=== PATIENT | male | born 1945 | race Caucasian/White ===

== ENCOUNTER → 2018-04-05 08:30 | Outpatient (CLI) | payer MEDICARE, OTHER, SELFPAY ==
[2018-04-05 09:13] LABS: Add Manual Diff / Slide Review NO; Basophils Percent Auto 0.3 % (0-2); Eosinophils Percent Auto 1.9 % (2-4); Hematocrit 42.3 % (41-53); Hemoglobin 14.7 g/dL (13.5-17.5); Lymphocytes Percent Auto 28.5 % (25-40); Mean Corpuscular HGB Conc 34.6 % (30-36); Mean Corpuscular Hemoglobin 33.2 PG (26-34); Mean Corpuscular Volume 95.7 fL (80-100); Neutrophils Absolute Auto 4000 /uL (3000-5900); Neutrophils Percent Auto 59.3 % (50-75); Platelet Count 159 X10^3/uL (150-400); Red Blood Cell Count 4.42 X10^6/uL (4.5-5.9); Red Cell Distribution Width 13.6 % (11.6-14.8); White Blood Cell Count 6.7 X10^3/uL (4.5-11.0)
[2018-04-05 10:12] LABS: Alanine Aminotransferase 28 IU/L (21-72); Albumin 4.1 g/dL (3.5-5.0); Albumin Globulin Ratio 1.4 (1.0-2.8); Alkaline Phosphatase 64 U/L (38-126); Aspartate Aminotransferase 33 IU/L (17-59); Bilirubin Total 1.3 mg/dL (0.2-1.3); Blood Urea Nitrogen 17 mg/dL (9-20); Calcium 9.1 mg/dL (8.4-10.2); Carbon Dioxide 31 mmol/L (22-32); Chloride 102 mmol/L (98-107); Cholesterol 108 mg/dL (140-199); Estimated Glomerular Filt Rate > 60.0 mL/min (>60); Globulin 2.9 g/dL (1.7-4.1); Glucose 99 mg/dL (80-110); HDL Cholesterol 40 mg/dL (40-60); HEMOLYSIS < 15 (0-50); LDL Cholesterol Calculated 48 mg/dL (<100); Potassium 4.3 mmol/L (3.4-5.1); Sodium 141 mmol/L (137-145); Triglycerides 102 mg/dL (35-150)
[2018-04-05 11:01] LABS: Thyroid Stimulating Hormone 6.25 uIU/mL (0.47-4.68)
[2018-04-05 11:31] LABS: T4 Total Thyroxine 7.33 ug/dL (5.5-11.0)
== END ==
PROVIDERS: Family Provider Family Medicine; PCP Family Medicine; Visit Provider Family Medicine
DX: D64.9 Anemia, unspecified (principal); E03.9 Hypothyroidism, unspecified; E78.00 Pure hypercholesterolemia, unspecified; R03.0 Elevated blood-pressure reading, without diagnosis of hypertension
CPT/HCPCS: 36415; 80053; 80061; 84436; 84443; 85025

== ENCOUNTER → 2018-07-25 12:16 | Outpatient (CLI) | payer MEDICARE, OTHER, SELFPAY ==
[2018-07-25 13:41] LABS: Free T4, Direct Thyroxine 1.26 ng/dL (0.78-2.19)
[2018-07-25 13:55] LABS: Thyroid Stimulating Hormone 2.79 uIU/mL (0.47-4.68)
== END ==
PROVIDERS: PCP Student in an Organized Health Care Education/Training Program; Visit Provider Family Medicine
DX: E03.9 Hypothyroidism, unspecified (principal)
CPT/HCPCS: 36415; 84439; 84443

== ENCOUNTER → 2019-04-18 10:16 | Outpatient (CLI) | payer MEDICARE, OTHER, SELFPAY ==
[2019-04-18 10:51] LABS: Blood Urea Nitrogen 17 mg/dL (9-20); Calcium 9.6 mg/dL (8.4-10.2); Carbon Dioxide 30 mmol/L (22-32); Chloride 103 mmol/L (98-107); Estimated Glomerular Filt Rate > 60.0 mL/min (>60); Glucose 102 mg/dL (80-110); HEMOLYSIS < 15 (0-50); Potassium 4.4 mmol/L (3.4-5.1); Sodium 141 mmol/L (137-145)
[2019-04-18 11:10] LABS: Free T4, Direct Thyroxine 1.13 ng/dL (0.78-2.19); Vitamin D 25 Hydroxy (D3) 38.3 ng/mL (30.0-100.0)
[2019-04-18 11:24] LABS: Thyroid Stimulating Hormone 2.88 uIU/mL (0.47-4.68)
== END ==
PROVIDERS: PCP Student in an Organized Health Care Education/Training Program; Visit Provider Student in an Organized Health Care Education/Training Program
DX: E55.9 Vitamin D deficiency, unspecified (principal); I10 Essential (primary) hypertension; I25.10 Atherosclerotic heart disease of native coronary artery without angina pectoris; E03.9 Hypothyroidism, unspecified
CPT/HCPCS: 36415; 80048; 82306; 84439; 84443

== ENCOUNTER → 2019-07-29 09:50 | Outpatient (CLI) | payer MEDICARE, OTHER, SELFPAY ==
[2019-07-29 12:22] LABS: TSH w/ Reflex to FT4 1.59 uIU/mL (0.47-4.68)
== END ==
PROVIDERS: PCP Student in an Organized Health Care Education/Training Program; Visit Provider Student in an Organized Health Care Education/Training Program
DX: E03.9 Hypothyroidism, unspecified (principal)
CPT/HCPCS: 36415; 84443

== ENCOUNTER 2019-08-01 14:49 | Emergency (ER) | payer MEDICARE, OTHER, SELFPAY ==
[2019-08-01] VITALS (8 sets, daily range): BP systolic 124–165; BP diastolic 60–91; PULSE 46–74; RESP 12–21; TEMP 36.6; O2SAT 96–100; BMI 25.3
--- NOTE | 2019-08-01 14:59 | DI.RAD.S_ITS ---
PROCEDURE: XR CHEST 1V INDICATIONS: chest pain TECHNIQUE: One view of the chest was acquired. COMPARISON: [facility], , CHEST 2 VIEW, 01/18/2017, 14:47. FINDINGS: Surgical changes and devices: None. Lungs and pleura: Lungs are clear. No pleural effusions or pneumothorax. Mediastinum: Mediastinal contours appear normal. Heart size is normal. Bones and chest wall: No suspicious bony lesions. Overlying soft tissues appear unremarkable. IMPRESSION: No acute disease. Dictated by: Denver Hodgson M.D. on 08/01/2019 at 15:33 Approved by: Denver Hodgson M.D. on 08/01/2019 at 15:33
[2019-08-01 15:10] LABS: Add Manual Diff / Slide Review NO; Basophils Absolute Auto 0 /uL (0-100); Basophils Percent Auto 0.3 % (0-2); Eosinophils Absolute Auto 100 /uL (0-450); Eosinophils Percent Auto 1.7 % (2-4); Hematocrit 44.4 % (41-53); Hemoglobin 15.3 g/dL (13.5-17.5); Lymphocytes Absolute Auto 1600 /uL (1100-4500); Lymphocytes Percent Auto 27.9 % (25-40); Mean Corpuscular HGB Conc 34.4 % (30-36); Mean Corpuscular Hemoglobin 33.5 PG (26-34); Mean Corpuscular Volume 97.5 fL (80-100); Monocytes Absolute Auto 600 /uL (0-900); Monocytes Percent Auto 10.4 % (3-14); Neutrophils Absolute Auto 3500 /uL (1500-7000); Neutrophils Percent Auto 59.7 % (50-75); Platelet Count 172 X10^3/uL (150-400); Red Blood Cell Count 4.55 X10^6/uL (4.5-5.9); Red Cell Distribution Width 13.6 % (11.6-14.8); White Blood Cell Count 5.9 X10^3/uL (4.5-11.0)
[2019-08-01 15:18] LABS: Prothrombin Time 11.4 SECONDS (10.1-12.7)
[2019-08-01 15:21] LABS: PTT Partial Thromboplastin Tim 29 SECONDS (26.4-36.2)
[2019-08-01 15:24] LABS: Alanine Aminotransferase 28 IU/L (<50); Albumin 4.7 g/dL (3.5-5.0); Albumin Globulin Ratio 1.5 (1.0-2.8); Alkaline Phosphatase 72 U/L (38-126); Aspartate Aminotransferase 37 IU/L (17-59); Bilirubin Total 1.2 mg/dL (0.2-1.3); Blood Urea Nitrogen 24 mg/dL (9-20); Calcium 10.4 mg/dL (8.4-10.2); Carbon Dioxide 29 mmol/L (22-32); Chloride 106 mmol/L (98-107); Creatine Kinase 177 U/L (55-170); Globulin 3.1 g/dL (1.7-4.1); Glucose 120 mg/dL (80-110); HEMOLYSIS 17 (0-50); Lipase 105 U/L (23-300); Potassium 3.9 mmol/L (3.4-5.1); Sodium 144 mmol/L (137-145); Total Protein 7.8 g/dL (6.3-8.2)
[2019-08-01 15:34] LABS: Troponin I < 0.012 ng/mL (0.01-0.034)
[2019-08-01 15:39] LABS: CKMB % Relative Index 1.1 % (1.5-5.0); Creatine Kinase MB 1.94 ng/mL (<2.37)
--- NOTE | 2019-08-01 15:45 | ED_ITS ---
HPI - Chest Pain <Sujey Rivas DO - Last Filed: 08/01/19 20:10> General Chief Complaint: Chest Pain Stated Complaint: CHEST PAIN Time Seen by Provider: 08/01/19 14:59 Source: patient Mode of arrival: Ambulatory Limitations: no limitations History of Present Illness HPI narrative: Patient 73-year-old male with history of coronary artery disease and 1 stent presenting with chest discomfort today. He was in the sauna for about 30 minutes about 5-10 minutes longer than his usual. While in the sauna he does lots of arm stretches, he noticed he was having some chest discomfort which radiated to both of his arms similar to when he needed his stent placed. He denies any shortness of breath. He thinks symptoms may have gotten slightly worse with exertion but now symptoms have completely resolved. He took aspirin prior to arrival. MD complaint: chest pain Duration: now resolved Onset: during rest Pain location: substernal Quality: heaviness Related Data Previous Rx's Medication Instructions Recorded aspirin 81 mg chewable tablet 81 mg PO DAILY #90 tab 12/20/18 atorvastatin 40 mg tablet 40 mg PO HS #90 tab 12/20/18 levothyroxine 75 mcg tablet 75 mcg PO DAILY #90 tab 04/18/19 metoprolol succinate 50 mg 50 mg PO QDAY #90 tab 04/18/19 tablet,extended release 24 hr Allergies Allergy/AdvReac Type Severity Reaction Status Date / Time No Known Drug Allergies Allergy Verified 08/01/19 14:59 Review of Systems <DO Justin Hall Last Filed: 08/01/19 20:10> Review of Systems Narrative: GENERAL: Denies chills, fatigue, malaise, fever, sweats, travel HEENT: Denies sinus pain, ear pain, sore throat, difficulty swallowing, neck pain RESPIRATORY: Denies dyspnea, cough, wheezing, hemoptysis, sputum. CARDIOVASCULAR: See HPI GASTROINTESTINAL: Denies nausea, vomiting, abdominal pain, diarrhea, constipation, melena. : Denies dysuria, frequency, incontinence, hematuria, urinary retention, flank pain. MUSCULOSKELETAL: Denies weakness, joint pain, or bony pain SKIN: No rash, no erythema, no pruritus NEUROLOGIC: Denies weakness, dizziness, headache, numbness, change in speech, confusion PSYCHIATRIC: No concerning psychosocial issues. 12 point review of systems is negative except for those stated above and HPI Patient History <Sujey Rivas DO - Last Filed: 08/01/19 20:10> Medical History Acquired hypothyroidism (Chronic 01/18/17) Benign prostatic hyperplasia (Chronic 01/18/17) BPH (benign prostatic hyperplasia) (Chronic) Coronary artery disease (Chronic) Hyperlipemia (Chronic) Hypothyroidism (Chronic) Osteoarthritis (Chronic) Pure hypercholesterolemia (Chronic 01/18/17) Surgical History History of back surgery (Resolved) History of open reduction and internal fixation (ORIF) procedure (Resolved ~03/2014) Hx of heart artery stent (Resolved 02/2017) Hx of surgical procedure (Resolved 1989) Family History Father No problems noted. Mother No problems noted. Social History Smoking Status: Never smoker Smoking Status: Never smoker alcohol intake frequency: holidays/special occasions only Substance Use Type: does not use Exam <Sujey Rivas DO - Last Filed: 08/01/19 20:10> Initial Vital Signs Initial Vital Signs: Vital Signs Temperature 97.8 F 08/01/19 14:55 Pulse Rate 68 08/01/19 14:55 Respiratory Rate 12 08/01/19 14:55 Blood Pressure 165/74 H 08/01/19 14:55 Pulse Oximetry 100 08/01/19 14:55 GENERAL: Well-appearing, well-nourished and in no acute distress. HEENT: Head atraumatic,EOMI, pupils reactive, face symmetric, moist mucous membranes CARDIOVASCULAR: Regular rate and rhythm without murmurs, rubs or gallops. RESPIRATORY: Breath sounds equal bilaterally, no wheezes rales or rhonchi. ABDOMEN: Soft, nontender. Normoactive bowel sounds all 4 quadrants. No guarding or rebound. EXTREMITIES: Normal range of motion, no clubbing or edema. Neurovascularly intact NEUROLOGICAL: Alert and oriented x4.Normal gait and speech. Cranial nerves II through XII grossly intact. SKIN: Warm, dry, no laceration, no petechiae, no rashes or lesions. <DO Justin Hoffman Last Filed: 08/02/19 00:05> Initial Vital Signs Initial Vital Signs: Vital Signs Temperature 97.8 F 08/01/19 14:55 Pulse Rate 68 08/01/19 14:55 Respiratory Rate 12 08/01/19 14:55 Blood Pressure 165/74 H 08/01/19 14:55 Pulse Oximetry 100 08/01/19 14:55 Course <Sujey Rivas DO - Last Filed: 08/01/19 20:10> Orders Ordered: ED Orders 08/01/19 17:47 Troponin I Stat 08/01/19 21:05 Trop I [Troponin I] Stat Heparin Sodium/Dextrose (Heparin Drip) 25,000 unit in 500 mls @ 17.636 mls/hr IV CONT SHYANNE; Protocol Last Admin: 08/01/19 19:25 Dose: 12 units/kg/hr, 17.636 mls/hr Documented by: MATHEWARRINGTO Discontinued Medications Atorvastatin Calcium (Lipitor) 40 mg PO NOW ONE Stop: 08/01/19 20:11 Last Admin: 08/01/19 20:22 Dose: 40 mg Documented by: MATHEWARRINGTO Heparin Sodium (Porcine) (Heparin) 4,000 unit IV NOW ONE Stop: 08/01/19 19:16 Last Admin: 08/01/19 19:26 Dose: 4,000 unit Documented by: ARRINGTO Nitroglycerin (Nitrostat) 0.3 mg SL NOW ONE Stop: 08/01/19 18:29 Vital Signs Vital signs: Vital Signs - 8 hr 08/01/19 17:15 08/01/19 18:16 08/01/19 19:38 Pulse Rate 55 L 56 L 74 Respiratory Rate 17 20 21 Blood Pressure [Right Arm] 148/67 H 134/60 154/91 H Pulse Oximetry 99 96 98 08/01/19 20:15 08/01/19 20:45 08/01/19 21:15 Pulse Rate 49 L 52 L 53 L Respiratory Rate 15 15 20 Blood Pressure [Right Arm] 140/78 130/73 130/73 Pulse Oximetry 99 98 100 08/01/19 22:58 Pulse Rate 46 L Respiratory Rate 16 Blood Pressure [Right Arm] 124/66 Pulse Oximetry 97 <Ta Quiñones DO - Last Filed: 08/02/19 00:05> Orders Ordered: ED Orders 08/01/19 17:47 Troponin I Stat 08/01/19 21:05 Trop I [Troponin I] Stat Heparin Sodium/Dextrose (Heparin Drip) 25,000 unit in 500 mls @ 17.636 mls/hr IV CONT SHYANNE; Protocol Last Admin: 08/01/19 19:25 Dose: 12 units/kg/hr, 17.636 mls/hr Documented by: ARRINGTO Discontinued Medications Atorvastatin Calcium (Lipitor) 40 mg PO NOW ONE Stop: 08/01/19 20:11 Last Admin: 08/01/19 20:22 Dose: 40 mg Documented by: ARRINGTO Heparin Sodium (Porcine) (Heparin) 4,000 unit IV NOW ONE Stop: 08/01/19 19:16 Last Admin: 08/01/19 19:26 Dose: 4,000 unit Documented by: ARRINGTO Nitroglycerin (Nitrostat) 0.3 mg SL NOW ONE Stop: 08/01/19 18:29 Vital Signs Vital signs: Vital Signs - 8 hr 08/01/19 17:15 08/01/19 18:16 08/01/19 19:38 Pulse Rate 55 L 56 L 74 Respiratory Rate 17 20 21 Blood Pressure [Right Arm] 148/67 H 134/60 154/91 H Pulse Oximetry 99 96 98 08/01/19 20:15 08/01/19 20:45 08/01/19 21:15 Pulse Rate 49 L 52 L 53 L Respiratory Rate 15 15 20 Blood Pressure [Right Arm] 140/78 130/73 130/73 Pulse Oximetry 99 98 100 08/01/19 22:58 Pulse Rate 46 L Respiratory Rate 16 Blood Pressure [Right Arm] 124/66 Pulse Oximetry 97 MDM - Chest Pain <Sujey Rivas DO - Last Filed: 08/01/19 20:10> Lab Data Attestation: I reviewed the patient's lab results. Result diagrams: 08/01/19 15:04 08/01/19 15:04 Labs: Lab Results 08/01/19 08/01/19 08/01/19 Range/Units 15:04 15:04 15:04 WBC 5.9 (4.5-11.0) X10^3/uL RBC 4.55 (4.5-5.9) X10^6/uL Hgb 15.3 (13.5-17.5) g/dL Hct 44.4 (41-53) % MCV 97.5 (80-100) fL MCH 33.5 (26-34) PG MCHC 34.4 (30-36) % RDW 13.6 (11.6-14.8) % Plt Count 172 (150-400) X10^3/uL Neut % (Auto) 59.7 (50-75) % Lymph % (Auto) 27.9 (25-40) % Spencer % (Auto) 10.4 (3-14) % Eos % (Auto) 1.7 L (2-4) % Baso % (Auto) 0.3 (0-2) % Neut # (Auto) 3500 (1535-0441) /uL Lymph # (Auto) 1600 (4566-4756) /uL Spencer # (Auto) 600 (0-900) /uL Eos # (Auto) 100 (0-450) /uL Baso # (Auto) 0 (0-100) /uL PT 11.4 (10.1-12.7) SECONDS INR 1.0 (0.9-1.3) APTT 29 (26.4-36.2) SECONDS Sodium 144 (137-145) mmol/L Potassium 3.9 (3.4-5.1) mmol/L Chloride 106 (98-107) mmol/L Carbon Dioxide 29 (22-32) mmol/L BUN 24 H (9-20) mg/dL Creatinine 1.20 (0.66-1.25) mg/dL Estimated GFR 59.0 L (>60) mL/min BUN/Creatinine Ratio 20.0 (6-22) Glucose 120 H (80-110) mg/dL Calcium 10.4 H (8.4-10.2) mg/dL Total Bilirubin 1.2 (0.2-1.3) mg/dL AST 37 (17-59) IU/L ALT 28 (<50) IU/L Alkaline Phosphatase 72 (38-126) U/L Total Creatine Kinase 177 H (55-170) U/L CK-MB (CK-2) 1.94 (<2.37) ng/mL CK-MB (CK-2) Rel Index 1.1 L (1.5-5.0) % Troponin I < 0.012 (0.01-0.034) ng/mL Total Protein 7.8 (6.3-8.2) g/dL Albumin 4.7 (3.5-5.0) g/dL Globulin 3.1 (1.7-4.1) g/dL Albumin/Globulin Ratio 1.5 (1.0-2.8) Lipase 105 (23-300) U/L 08/01/19 08/01/19 Range/Units 17:47 21:05 WBC (4.5-11.0) X10^3/uL RBC (4.5-5.9) X10^6/uL Hgb (13.5-17.5) g/dL Hct (41-53) % MCV (80-100) fL MCH (26-34) PG MCHC (30-36) % RDW (11.6-14.8) % Plt Count (150-400) X10^3/uL Neut % (Auto) (50-75) % Lymph % (Auto) (25-40) % Spencer % (Auto) (3-14) % Eos % (Auto) (2-4) % Baso % (Auto) (0-2) % Neut # (Auto) (4861-5029) /uL Lymph # (Auto) (4619-4171) /uL Spencer # (Auto) (0-900) /uL Eos # (Auto) (0-450) /uL Baso # (Auto) (0-100) /uL PT (10.1-12.7) SECONDS INR (0.9-1.3) APTT (26.4-36.2) SECONDS Sodium (137-145) mmol/L Potassium (3.4-5.1) mmol/L Chloride (98-107) mmol/L Carbon Dioxide (22-32) mmol/L BUN (9-20) mg/dL Creatinine (0.66-1.25) mg/dL Estimated GFR (>60) mL/min BUN/Creatinine Ratio (6-22) Glucose (80-110) mg/dL Calcium (8.4-10.2) mg/dL Total Bilirubin (0.2-1.3) mg/dL AST (17-59) IU/L ALT (<50) IU/L Alkaline Phosphatase (38-126) U/L Total Creatine Kinase (55-170) U/L CK-MB (CK-2) (<2.37) ng/mL CK-MB (CK-2) Rel Index (1.5-5.0) % Troponin I 0.111 H 0.232 H* (0.01-0.034) ng/mL Total Protein (6.3-8.2) g/dL Albumin (3.5-5.0) g/dL Globulin (1.7-4.1) g/dL Albumin/Globulin Ratio (1.0-2.8) Lipase (23-300) U/L Imaging Data Chest x-ray: Radiologist's impression: PROCEDURE: XR CHEST 1V INDICATIONS: chest pain TECHNIQUE: One view of the chest was acquired. COMPARISON: [facility], CHEST 2 VIEW, 01/18/2017, 14:47. FINDINGS: Surgical changes and devices: None. Lungs and pleura: Lungs are clear. No pleural effusions or pneumothorax. Mediastinum: Mediastinal contours appear normal. Heart size is normal. Bones and chest wall: No suspicious bony lesions. Overlying soft tissues appear unremarkable. IMPRESSION: No acute disease. Dictated by: Denver Hodgson M.D. on 08/01/2019 at 15:33 ECG Data Attestation: I personally reviewed and interpreted this ECG as follows: Prior ECG tracings: not available for review Interpretation: Rate 59 p.r. interval 147 QRS [address] elevation depression or T-wave inversion no prior to compare [facility] Narrative Medical decision making narrative: Patient had recurrent pain of chest discomfort while in the emergency department it was relatively short lived a r epeat troponin did elevate quite a bit our cutoff is 0.12, his troponin is 0.111. Heparin drip is started. He states that he does have some back pain between his shoulder blades that has been going on for a number of his years he doesn't think it's any worse now it is definitely better when he lies down. This time based on signs and symptoms I don't think he is having a dissection. He appears comfortable and pain it has resolved with repositioning in bed. [facility] closed [facility] Closed [facility] Closed Dr. Huffman Hospitalist, request of 40 more mg of atorvastatin happily accepts patient for transfer to [facility] Patient took metoprolol this morning and atorvastatin Patient signed out to Dr. Quiñones. <Ta Quiñones, DO - Last Filed: 08/02/19 00:05> Lab Data Labs: Lab Results 08/01/19 08/01/19 08/01/19 Range/Units 15:04 15:04 15:04 WBC 5.9 (4.5-11.0) X10^3/uL RBC 4.55 (4.5-5.9) X10^6/uL Hgb 15.3 (13.5-17.5) g/dL Hct 44.4 (41-53) % MCV 97.5 (80-100) fL MCH 33.5 (26-34) PG MCHC 34.4 (30-36) % RDW 13.6 (11.6-14.8) % Plt Count 172 (150-400) X10^3/uL Neut % (Auto) 59.7 (50-75) % Lymph % (Auto) 27.9 (25-40) % Spencer % (Auto) 10.4 (3-14) % Eos % (Auto) 1.7 L (2-4) % Baso % (Auto) 0.3 (0-2) % Neut # (Auto) 3500 (3323-2955) /uL Lymph # (Auto) 1600 (7630-6535) /uL Spencer # (Auto) 600 (0-900) /uL Eos # (Auto) 100 (0-450) /uL Baso # (Auto) 0 (0-100) /uL PT 11.4 (10.1-12.7) SECONDS INR 1.0 (0.9-1.3) APTT 29 (26.4-36.2) SECONDS Sodium 144 (137-145) mmol/L Potassium 3.9 (3.4-5.1) mmol/L Chloride 106 (98-107) mmol/L Carbon Dioxide 29 (22-32) mmol/L BUN 24 H (9-20) mg/dL Creatinine 1.20 (0.66-1.25) mg/dL Estimated GFR 59.0 L (>60) mL/min BUN/Creatinine Ratio 20.0 (6-22) Glucose 120 H (80-110) mg/dL Calcium 10.4 H (8.4-10.2) mg/dL Total Bilirubin 1.2 (0.2-1.3) mg/dL AST 37 (17-59) IU/L ALT 28 (<50) IU/L Alkaline Phosphatase 72 (38-126) U/L Total Creatine Kinase 177 H (55-170) U/L CK-MB (CK-2) 1.94 (<2.37) ng/mL CK-MB (CK-2) Rel Index 1.1 L (1.5-5.0) % Troponin I < 0.012 (0.01-0.034) ng/mL Total Protein 7.8 (6.3-8.2) g/dL Albumin 4.7 (3.5-5.0) g/dL Globulin 3.1 (1.7-4.1) g/dL Albumin/Globulin Ratio 1.5 (1.0-2.8) Lipase 105 (23-300) U/L 08/01/19 08/01/19 Range/Units 17:47 21:05 WBC (4.5-11.0) X10^3/uL RBC (4.5-5.9) X10^6/uL Hgb (13.5-17.5) g/dL Hct (41-53) % MCV (80-100) fL MCH (26-34) PG MCHC (30-36) % RDW (11.6-14.8) % Plt Count (150-400) X10^3/uL Neut % (Auto) (50-75) % Lymph % (Auto) (25-40) % Spencer % (Auto) (3-14) % Eos % (Auto) (2-4) % Baso % (Auto) (0-2) % Neut # (Auto) (2895-3217) /uL Lymph # (Auto) (2428-6144) /uL Spencer # (Auto) (0-900) /uL Eos # (Auto) (0-450) /uL Baso # (Auto) (0-100) /uL PT (10.1-12.7) SECONDS INR (0.9-1.3) APTT (26.4-36.2) SECONDS Sodium (137-145) mmol/L Potassium (3.4-5.1) mmol/L Chloride (98-107) mmol/L Carbon Dioxide (22-32) mmol/L BUN (9-20) mg/dL Creatinine (0.66-1.25) mg/dL Estimated GFR (>60) mL/min BUN/Creatinine Ratio (6-22) Glucose (80-110) mg/dL Calcium (8.4-10.2) mg/dL Total Bilirubin (0.2-1.3) mg/dL AST (17-59) IU/L ALT (<50) IU/L Alkaline Phosphatase (38-126) U/L Total Creatine Kinase (55-170) U/L CK-MB (CK-2) (<2.37) ng/mL CK-MB (CK-2) Rel Index (1.5-5.0) % Troponin I 0.111 H 0.232 H* (0.01-0.034) ng/mL Total Protein (6.3-8.2) g/dL Albumin (3.5-5.0) g/dL Globulin (1.7-4.1) g/dL Albumin/Globulin Ratio (1.0-2.8) Lipase (23-300) U/L MDM Narrative Medical decision making narrative: Dr Quiñones: Received turned over from Dr. Rivas. Patient has already been accepted to [facility] for ACS. Patient has been on a heparin drip. Remained stable. Troponin elevating. Will continue with transport. Discharge Plan Departure Patient Disposition: [facility] Clinical Impression: ACS (acute coronary syndrome) Prescriptions: No Action levothyroxine 75 mcg tablet 75 mcg PO DAILY Qty: 90 RF: 1 metoprolol succinate [Toprol XL] 50 mg tablet extended release 24 hr 50 mg PO QDAY Qty: 90 RF: 3 aspirin 81 mg tablet,chewable 81 mg PO DAILY Qty: 90 RF: 3 atorvastatin [Lipitor] 40 mg tablet 40 mg PO HS Qty: 90 RF: 3 Referrals: Boby Wing MD [Primary Care Provider] -
[2019-08-01 18:21] LABS: Troponin I 0.111 ng/mL (0.01-0.034)
[2019-08-01] MEDS: ASPIRIN 81 MG CHEW TAB 243 MG (18:38)
[2019-08-01] MEDS: HEPARIN DRIP 25,000 UNIT/500 ML IV.SOLN 17.636 UNIT IV (19:25)
[2019-08-01] MEDS: HEPARIN 5,000 UNIT/ML VIAL 4000 UNIT IV (19:26)
--- NOTE | 2019-08-01 19:33 | PC.NURSE ---
heparin bolus and drip dosages checked with MD Rivas and confirmed by second RN Nena Coronado
[2019-08-01] MEDS: ATORVASTATIN 20 MG TABLET 40 MG PO (20:22)
--- NOTE | 2019-08-01 20:40 | PC.NURSE ---
Gave report to WILNER Oropeza at [facility] in [place], Dr Huffman accepting, patient will go to the ED there and is cleared for transport
[2019-08-01 21:37] LABS: Troponin I 0.232 ng/mL (0.01-0.034)
[2019-08-02 00:21] VITALS: BP 121/61; PULSE 45; RESP 13; O2SAT 99
--- NOTE | 2019-08-20 00:31 | PC.NURSE ---
Late Entry: Pt had received a total of 88ml of Heparin Via Iv. Was transported to [facility] with heparin infusing.
== END 2019-08-02 00:23 | disposition short-term general hospital (02) ==
PROVIDERS: Emergency Medicine; Emergency Provider Emergency Medicine; PCP Student in an Organized Health Care Education/Training Program
DX: I24.9 Acute ischemic heart disease, unspecified (principal); R79.89 Other specified abnormal findings of blood chemistry
CPT/HCPCS: 36415; 71045; 80053; 82550; 82553; 83690; 84484; 85025; 85610; 85730; 93005; 93010; 96365; 96366; 96375; 99284; 99285; J1644

== ENCOUNTER → 2019-09-27 14:14 | Outpatient (CLI) | payer MEDICARE, OTHER, SELFPAY | PROVIDERS: PCP Student in an Organized Health Care Education/Training Program; Visit Provider Physician Assistant | DX: L02.91 Cutaneous abscess, unspecified (principal) | CPT/HCPCS: 87070; 87075; 87205 ==

== ENCOUNTER → 2019-12-05 12:44 | Outpatient (CLI) | payer MEDICARE, OTHER, SELFPAY ==
[2019-12-05 14:38] LABS: Hemoglobin A1C% w Est Avg Glu 6.3 % (4.0-6.0)
== END ==
PROVIDERS: PCP Student in an Organized Health Care Education/Training Program; Referring Provider Student in an Organized Health Care Education/Training Program; Visit Provider Student in an Organized Health Care Education/Training Program
DX: R73.03 Prediabetes (principal); R73.9 Hyperglycemia, unspecified
CPT/HCPCS: 36415; 83036

== ENCOUNTER → 2020-03-29 10:12 | Outpatient (CLI) | payer MEDICARE, OTHER, SELFPAY ==
[2020-03-29 11:04] LABS: Hemoglobin A1C% w Est Avg Glu 6.2 % (4.0-6.0)
== END ==
PROVIDERS: PCP Student in an Organized Health Care Education/Training Program; Referring Provider Student in an Organized Health Care Education/Training Program; Visit Provider Student in an Organized Health Care Education/Training Program
DX: R73.03 Prediabetes (principal)
CPT/HCPCS: 36415; 83036

== ENCOUNTER 2020-04-05 10:30 | Emergency (ER) | payer MEDICARE, OTHER, SELFPAY ==
[2020-04-05 10:36] VITALS: BP 198/86; PULSE 68; RESP 14; TEMP 36.7; O2SAT 98
--- NOTE | 2020-04-05 10:40 | DI.CT.S_ITS ---
PROCEDURE: CT FACIAL BONES WO CON INDICATIONS: unprotected fall on face , now confusion, ASA 81 mg TECHNIQUE: Noncontrast 2.5 mm thick axial images acquired from the mandible through the frontal sinuses, with coronal and sagittal reformatting. For radiation dose reduction, the following was used: automated exposure control, adjustment of mA and/or kV according to patient size. COMPARISON: None. FINDINGS: Image quality: Excellent. Bones and teeth: Orbital gregory are intact. Sinus gregory show no fracture or deformity. Nasal bones and septum are intact. Visualized portions of the mandible demonstrate no fractures or subluxation. Zygomatic arches are intact. Pterygoid plates are intact. Visualized portions of the skull base and auditory canals are intact. Sinuses: Paranasal sinuses are aerated, without fluid levels, mucosal thickening, or mucoceles. Mastoid air cells are aerated. Soft tissues: No edema, masses, or fluid collections. No enlarged lymph nodes. No soft tissue lacerations or debris. Vascular: Visualized vascular structures appear normal in the absence of contrast. Bony vascular foramina and canals are intact. IMPRESSION: No trauma found. Dictated by: Rakesh Willard M.D. on 04/05/2020 at 11:24 Approved by: Rakesh Willard M.D. on 04/05/2020 at 11:24
--- NOTE | 2020-04-05 10:40 | DI.CT.S_ITS ---
PROCEDURE: CT HEAD/BRAIN WO CON INDICATIONS: unprotected fall on face , now confusion, ASA 81 mg TECHNIQUE: Noncontrast 4.5 mm thick angled axial sections acquired from the foramen magnum to the vertex, with coronal and sagittal reformats. For radiation dose reduction, the following was used: automated exposure control, adjustment of mA and/or kV according to patient size. COMPARISON: None. FINDINGS: Image quality: Excellent. CSF spaces: Basal cisterns are patent. No extra-axial fluid collections. The ventricles are symmetric in size and shape. Brain: No intracranial bleeds or masses. There is cerebral volume loss for age, with resultant ventricular and sulcal prominence. There are periventricular and deep white matter chronic small vessel ischemic changes. There is intracranial internal carotid artery atherosclerosis. Skull and face: Calvarium and visualized facial bones appear intact, without suspicious lesions. Sinuses: Visualized sinuses and mastoids are clear. IMPRESSION: No trauma found. Dictated by: Rakesh Willard M.D. on 04/05/2020 at 11:23 Approved by: Rakesh Willard M.D. on 04/05/2020 at 11:23
--- NOTE | 2020-04-05 10:40 | DI.CT.S_ITS ---
PROCEDURE: CT CERVICAL SPINE WO CON INDICATIONS: unprotected fall on face , now confusion, ASA 81 mg TECHNIQUE: Noncontrast 3 mm thick sections acquired from the skull base to the T4 level. Sagittal and coronal reformats were then constructed. For radiation dose reduction, the following was used: automated exposure control, adjustment of mA and/or kV according to patient size. COMPARISON: None. FINDINGS: Image quality: Excellent. Bones: No fractures or dislocations. Visualized superior ribs are intact. Mild to moderate chronic degenerative disc disease and facet osteoarthritis over the middle and lower thirds of the cervical spine. Soft tissues: Prevertebral soft tissues are normal in thickness. No paravertebral hematomas. No apical pneumothoraces. IMPRESSION: [id number] degenerative disc disease over the middle and lower thirds of the cervical spine without trauma found. Dictated by: Rakesh Willard M.D. on 04/05/2020 at 11:24 Approved by: Rakesh Willard M.D. on 04/05/2020 at 11:26
--- NOTE | 2020-04-05 10:54 | PC.NURSE ---
patient uncertain about sensation on face. When touched with a sharp object he states I think that one is sharp patient able to feel dull objects.
--- NOTE | 2020-04-05 10:56 | PC.NURSE ---
Patient presents A&O x4. He states that yesterday in conversation with his pasture he was certain it was the first sunday of the month. 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
[2020-04-05 10:59] LABS: Add Manual Diff / Slide Review NO; Basophils Absolute Auto 0 /uL (0-100); Basophils Percent Auto 0.4 % (0-2); Eosinophils Absolute Auto 100 /uL (0-450); Eosinophils Percent Auto 1.7 % (2-4); Hematocrit 41.1 % (41-53); Hemoglobin 13.8 g/dL (13.5-17.5); Lymphocytes Absolute Auto 1400 /uL (1100-4500); Lymphocytes Percent Auto 25.8 % (25-40); Mean Corpuscular HGB Conc 33.6 % (30-36); Mean Corpuscular Hemoglobin 32.5 PG (26-34); Mean Corpuscular Volume 96.6 fL (80-100); Monocytes Absolute Auto 500 /uL (0-900); Monocytes Percent Auto 8.5 % (3-14); Neutrophils Absolute Auto 3400 /uL (1500-7000); Neutrophils Percent Auto 63.6 % (50-75); Platelet Count 167 X10^3/uL (150-400); Red Blood Cell Count 4.26 X10^6/uL (4.5-5.9); Red Cell Distribution Width 13.9 % (11.6-14.8); White Blood Cell Count 5.4 X10^3/uL (4.5-11.0)
[2020-04-05 11:06] LABS: BUN Creatinine Ratio 14.3 (6-22); Blood Urea Nitrogen 15 mg/dL (9-20); Calcium 9.4 mg/dL (8.4-10.2); Carbon Dioxide 25 mmol/L (22-32); Chloride 106 mmol/L (98-107); Estimated Glomerular Filt Rate > 60.0 mL/min (>60); Glucose 162 mg/dL (80-110); HEMOLYSIS < 15 (0-50); Potassium 4.1 mmol/L (3.4-5.1); Sodium 139 mmol/L (137-145)
--- NOTE | 2020-04-05 11:11 | ED.HEATRA ---
HPI - Head Injury General Chief complaint: Head Injury Stated complaint: POSSIBLE CONCUSSION SENT BY DR WING Time Seen by Provider: 04/05/20 10:43 Source: patient and family Mode of arrival: Ambulatory History of Present Illness HPI Narrative: Patient is a 74-year-old male history of coronary artery disease presenting after ground level fall 2 days ago. He was backpacking with his daughter when he lost his balance and fell forward hitting his face. He had things in both hands and was unable to catch himself. There was no loss of consciousness he denies any nausea or vomiting or vision changes. He says he is pretty sure he broke his nose because he had epistaxis at that time. He says yesterday he was having some foggy thinking and confusion. He had no weakness numbness or tingling visual changes nausea or vomiting. He says that his thinking is still little fuzzy this morning. MD Complaint: head injury and fall Onset (ago): day(s) Mechanism of Injury: fall Place: outdoors Loss of Consciousness: no Location of injury: frontal Severity: mild Related Data Previous Rx's Medication Instructions Recorded metoprolol succinate 50 mg 50 mg PO QDAY #90 tab 04/18/19 tablet,extended release 24 hr mupirocin 2 % topical ointment 1 applic TOP BID #30 gram 09/27/19 levothyroxine 75 mcg tablet 75 mcg PO DAILY #90 tab 10/29/19 atorvastatin 80 mg tablet 80 mg PO HS #90 tab 11/14/19 metformin 500 mg tablet 500 mg PO DAILY #90 tab 12/05/19 aspirin 81 mg chewable tablet 81 mg PO DAILY #90 tab 03/03/20 Allergies Allergy/AdvReac Type Severity Reaction Status Date / Time No Known Drug Allergies Allergy Verified 04/05/20 10:39 Review of Systems Review of Systems Narrative: GENERAL: Denies chills, fatigue, malaise, fever, sweats, travel HEENT: Denies sinus pain, ear pain, sore throat, difficulty swallowing, neck pain RESPIRATORY: Denies dyspnea, cough, wheezing, hemoptysis, sputum. CARDIOVASCULAR: Denies chest pain, palpitations, orthopnea, edema GASTROINTESTINAL: Denies nausea, vomiting, abdominal pain, diarrhea, constipation, melena. : Denies dysuria, frequency, incontinence, hematuria, urinary retention, flank pain. MUSCULOSKELETAL: See HPI SKIN: No rash, no erythema, no pruritus NEUROLOGIC: Denies weakness, dizziness, headache, numbness, change in speech, confusion PSYCHIATRIC: No concerning psychosocial issues. 12 point review of systems is negative except for those stated above and HPI Patient History Medical History Acquired hypothyroidism (Chronic 01/18/17) Benign prostatic hyperplasia (Chronic 01/18/17) BPH (benign prostatic hyperplasia) (Chronic) Coronary artery disease (Chronic) Hyperlipemia (Chronic) Hypothyroidism (Chronic) Osteoarthritis (Chronic) Pure hypercholesterolemia (Chronic 01/18/17) Surgical History History of back surgery (Resolved) History of open reduction and internal fixation (ORIF) procedure (Resolved ~03/2014) Hx of heart artery stent (Resolved 02/2017) Hx of surgical procedure (Resolved 1989) Family History Father No problems noted. Mother No problems noted. Social History Smoking Status: Never smoker Smoking Status: Never smoker alcohol intake frequency: holidays/special occasions only Substance Use Type: does not use Exam Initial Vital Signs Initial Vital Signs: Vital Signs Temperature 98.1 F 04/05/20 10:36 Pulse Rate 68 04/05/20 10:36 Respiratory Rate 14 04/05/20 10:36 Blood Pressure 198/86 H 04/05/20 10:36 Pulse Oximetry 98 04/05/20 10:36 GENERAL: Alert well-appearing older gentleman and in no acute distress. HEENT: Head atraumatic no crepitations depressions no contusion very minor skin abrasion noted on forehead, nose seems slightly off but EOMI, pupils reactive, face symmetric, moist mucous membranes NECK: No vertebral tenderness no step-offs full flexion extension and rotation CARDIOVASCULAR: Regular rate and rhythm without murmurs, rubs or gallops. RESPIRATORY: Breath sounds equal bilaterally, no wheezes rales or rhonchi. ABDOMEN: Soft, nontender. Normoactive bowel sounds all 4 quadrants. No guarding or rebound. EXTREMITIES: Normal range of motion, no clubbing or edema. Neurovascularly intact NEUROLOGICAL: Alert and oriented x4.Normal gait and speech. Cranial nerves II through XII grossly intact. SKIN: Warm, dry, no laceration, no petechiae, no rashes or lesions. Scores NIH Stroke Scale Level of Conciousness: Alert, keenly responsive Ask month/age: Answers both questions correctly. Open/close eyes, close hand: Performs both tasks correctly Best gaze horizontal: Normal Visual boo: No visual loss Facial palsy: Normal symetrical movement Left arm drift: No drift for full 10 sec Right arm drift: No drift for full 10 sec Left leg drift: No drift for full 10 sec Right leg drift: No drift for full 10 sec Limb ataxia: Absent Sensory on face/arms/legs: Normal, no sensory loss Best language: No aphasia, normal Dysarthria: Normal Extinction or inattention: No abnormality Total NIH Stroke scale score: 0 Course Orders Ordered: ED Orders 04/05/20 10:38 Basic Metabolic Panel Stat Complete Blood Count AUTO DIFF Stat 04/05/20 10:40 CT cervical spine wo con Stat CT facial bones wo con Stat CT head/brain wo con Stat Vital Signs Vital signs: Vital Signs - 8 hr 04/05/20 10:36 04/05/20 11:59 Temperature 98.1 F Pulse Rate 68 55 L Respiratory Rate 14 14 Blood Pressure 198/86 H 147/70 H Pulse Oximetry 98 97 MDM - Head Injury Lab Data Attestation: I reviewed the patient's lab results. Result diagrams: 04/05/20 10:38 04/05/20 10:38 Labs: Lab Results 04/05/20 04/05/20 Range/Units 10:38 10:38 WBC 5.4 (4.5-11.0) X10^3/uL RBC 4.26 L (4.5-5.9) X10^6/uL Hgb 13.8 (13.5-17.5) g/dL Hct 41.1 (41-53) % MCV 96.6 (80-100) fL MCH 32.5 (26-34) PG MCHC 33.6 (30-36) % RDW 13.9 (11.6-14.8) % Plt Count 167 (150-400) X10^3/uL Neut % (Auto) 63.6 (50-75) % Lymph % (Auto) 25.8 (25-40) % Polk % (Auto) 8.5 (3-14) % Eos % (Auto) 1.7 L (2-4) % Baso % (Auto) 0.4 (0-2) % Neut # (Auto) 3400 (2499-2452) /uL Lymph # (Auto) 1400 (0594-1722) /uL Polk # (Auto) 500 (0-900) /uL Eos # (Auto) 100 (0-450) /uL Baso # (Auto) 0 (0-100) /uL Sodium 139 (137-145) mmol/L Potassium 4.1 (3.4-5.1) mmol/L Chloride 106 (98-107) mmol/L Carbon Dioxide 25 (22-32) mmol/L BUN 15 (9-20) mg/dL Creatinine 1.05 (0.66-1.25) mg/dL Estimated GFR > 60.0 (>60) mL/min BUN/Creatinine Ratio 14.3 (6-22) Glucose 162 H (80-110) mg/dL Calcium 9.4 (8.4-10.2) mg/dL Imaging Data CT scan - head: Radiologist's Impression: PROCEDURE: CT HEAD/BRAIN WO CON INDICATIONS: unprotected fall on face , confusion, ASA 81 mg TECHNIQUE: Noncontrast 4.5 mm thick angled axial sections acquired from the foramen magnum to the vertex, with coronal and sagittal reformats. For radiation dose reduction, the following was used: automated exposure control, adjustment of mA and/or kV according to patient size. COMPARISON: None. FINDINGS: Image quality: Excellent. CSF spaces: Basal cisterns are patent. No extra-axial fluid collections. The ventricles are symmetric in size and shape. Brain: No intracranial bleeds or masses. There is cerebral volume loss for age, with resultant ventricular and sulcal prominence. There are periventricular and deep white matter chronic small vessel ischemic changes. There is intracranial internal carotid artery atherosclerosis. Skull and face: Calvarium and visualized facial bones appear intact, without suspicious lesions. Sinuses: Visualized sinuses and mastoids are clear. IMPRESSION: No trauma found. Dictated by: Rakesh Willard M.D. on 04/05/2020 at 11:23 CT - cervical spine: Radiologist's Impression: PROCEDURE: CT CERVICAL SPINE WO CON INDICATIONS: unprotected fall on face , confusion, ASA 81 mg TECHNIQUE: Noncontrast 3 mm thick sections acquired from the skull base to the T4 level. Sagittal and coronal reformats were then constructed. For radiation dose reduction, the following was used: automated exposure control, adjustment of mA and/or kV according to patient size. COMPARISON: None. FINDINGS: Image quality: Excellent. Bones: No fractures or dislocations. Visualized superior ribs are intact. Mild to moderate chronic degenerative disc disease and facet osteoarthritis over the middle and lower thirds of the cervical spine. Soft tissues: Prevertebral soft tissues are normal in thickness. No paravertebral hematomas. No apical pneumothoraces. IMPRESSION: Nios-mb-curoetus degenerative disc disease over the middle and lower thirds of the cervical spine without trauma found. Dictated by: Rakesh Willard M.D. on 04/05/2020 at 11:24 CT-Facial: Radiologist's Impression: PROCEDURE: CT FACIAL BONES WO CON INDICATIONS: unprotected fall on face confusion, ASA 81 mg TECHNIQUE: Noncontrast 2.5 mm thick axial images acquired from the mandible through the frontal sinuses, with coronal and sagittal reformatting. For radiation dose reduction, the following was used: automated exposure control, adjustment of mA and/or kV according to patient size. COMPARISON: None. FINDINGS: Image quality: Excellent. Bones and teeth: Orbital gregory are intact. Sinus gregory show no fracture or deformity. Nasal bones and septum are intact. Visualized portions of the mandible demonstrate no fractures or subluxation. Zygomatic arches are intact. Pterygoid plates are intact. Visualized portions of the skull base and auditory canals are intact. Sinuses: Paranasal sinuses are aerated, without fluid levels, mucosal thickening, or mucoceles. Mastoid air cells are aerated. Soft tissues: No edema, masses, or fluid collections. No enlarged lymph nodes. No soft tissue lacerations or debris. Vascular: Visualized vascular structures appear normal in the absence of contrast. Bony vascular foramina and canals are intact. IMPRESSION: No trauma found. Dictated by: Rakesh Willard M.D. on 04/05/2020 at 11:24 Approved by: Rakesh Willard M.D. on 04/05/2020 at 11:24 [facility] Narrative Medical decision making narrative: Patient does not have signs or symptoms of stroke. Symptoms started after a fall this is more likely to be concussion syndrome. He does not have a headache. CT scans do not show any abnormalities. Recommend resting and staying hydrated the weather is warm these days. I discussed all findings with the patient and , Education has been performed regarding treatment plan, diagnosis, warning signs and symptoms and all concerns have been addressed. Verbally agree with and understood all of the above. Discharge Plan Departure Patient Disposition: Home Clinical Impression: Concussion Qualifiers: Encounter type: initial encounter Loss of consciousness presence/duration: without LOC Qualified Code(s): S06.0X0A - Concussion without loss of consciousness, initial encounter Discharge Date/Time: 04/05/20 12:00 Instructions: Concussion Activity Restrictions/Additional Instructions: *You have been diagnosed with concussion *What to do: Rest, decreased brain stimulation with lights or screen time. Stay hydrated *Continue to take medications as directed *Follow up with your primary care provider in 2-3 days *Return to ER if you should have increased confusion, weakness, facial droop, difficulty speaking, visual changes or any new, worsening or concerning symptoms Prescriptions: No Action mupirocin 2 % ointment 1 applic TOP BID Qty: 30 RF: 0 levothyroxine 75 mcg tablet 75 mcg PO DAILY Qty: 90 RF: 3 atorvastatin 80 mg tablet 80 mg PO HS Qty: 90 RF: 3 metformin 500 mg tablet 500 mg PO DAILY Qty: 90 RF: 1 aspirin 81 mg tablet,chewable 81 mg PO DAILY Qty: 90 RF: 3 metoprolol succinate [Toprol XL] 50 mg tablet extended release 24 hr 50 mg PO QDAY Qty: 90 RF: 3 Referrals: Boby Wing MD [Primary Care Provider] -
[2020-04-05 11:59] VITALS: BP 147/70; PULSE 55; RESP 14; O2SAT 97
== END 2020-04-05 12:00 | disposition home or self-care (01) ==
PROVIDERS: Emergency Provider Emergency Medicine; PCP Student in an Organized Health Care Education/Training Program
DX: S06.0X0A Concussion without loss of consciousness, initial encounter (principal); S09.93XA Unspecified injury of face, initial encounter; R41.0 Disorientation, unspecified; W19.XXXA Unspecified fall, initial encounter; I25.10 Atherosclerotic heart disease of native coronary artery without angina pectoris
CPT/HCPCS: 36415; 70450; 70486; 72125; 80048; 85025; 99283; 99284

== ENCOUNTER → 2020-10-08 09:08 | Outpatient (CLI) | payer MEDICARE, OTHER, SELFPAY ==
[2020-10-08 10:07] LABS: Hemoglobin A1C% w Est Avg Glu 6.1 % (4.0-6.0)
[2020-10-08 10:17] LABS: BUN Creatinine Ratio 15.7 (6-22); Blood Urea Nitrogen 16 mg/dL (9-20); Estimated Glomerular Filt Rate > 60.0 mL/min (>60)
[2020-10-08 10:41] LABS: Creatinine Urine Random 186.5 mg/dL
[2020-10-08 10:45] LABS: Microalbumi Creatinin Ratio Ur 4.2 ug/mg CR (<30); Microalbumin Urine Random 0.8 mg/dL (0-1.6)
== END ==
PROVIDERS: PCP Student in an Organized Health Care Education/Training Program; Referring Provider Student in an Organized Health Care Education/Training Program; Visit Provider Student in an Organized Health Care Education/Training Program
DX: R73.03 Prediabetes (principal)
CPT/HCPCS: 36415; 82043; 82565; 82570; 83036; 84520

== ENCOUNTER → 2021-04-19 09:45 | Outpatient (CLI) | payer MEDICARE, OTHER, SELFPAY ==
[2021-04-19 10:56] LABS: BUN Creatinine Ratio 15.2 (6-22); Blood Urea Nitrogen 15 mg/dL (9-20); Estimated Glomerular Filt Rate > 60.0 mL/min (>60)
== END ==
PROVIDERS: PCP Student in an Organized Health Care Education/Training Program; Referring Provider Student in an Organized Health Care Education/Training Program; Visit Provider Student in an Organized Health Care Education/Training Program
DX: I10 Essential (primary) hypertension (principal); R73.03 Prediabetes
CPT/HCPCS: 36415; 82565; 83036; 84520

== ENCOUNTER → 2021-11-04 08:35 | Outpatient (CLI) | payer MEDICARE, OTHER, SELFPAY ==
[2021-11-04 09:49] LABS: Hemoglobin A1C% w Est Avg Glu 6.3 % (4.0-6.0)
[2021-11-04 09:52] LABS: BUN Creatinine Ratio 14.2 (6-22); Blood Urea Nitrogen 15 mg/dL (9-20); Cholesterol 109 mg/dL (140-199); Estimated Glomerular Filt Rate > 60.0 mL/min (>60); HDL Cholesterol 33 mg/dL (40-60); LDL Cholesterol Calculated 60 mg/dL (<100); Triglycerides 79 mg/dL (35-150)
[2021-11-04 10:34] LABS: Creatinine Urine Random 178.6 mg/dL
[2021-11-04 10:39] LABS: Microalbumi Creatinin Ratio Ur 6.7 ug/mg CR (<30); Microalbumin Urine Random 1.2 mg/dL (0-1.6)
[2021-11-04 10:47] LABS: TSH w/ Reflex to FT4 1.14 uIU/mL (0.47-4.68)
== END ==
PROVIDERS: PCP Student in an Organized Health Care Education/Training Program; Referring Provider Student in an Organized Health Care Education/Training Program; Visit Provider Student in an Organized Health Care Education/Training Program
DX: E11.9 Type 2 diabetes mellitus without complications (principal); E11.69 Type 2 diabetes mellitus with other specified complication; E78.5 Hyperlipidemia, unspecified; I25.10 Atherosclerotic heart disease of native coronary artery without angina pectoris; E03.9 Hypothyroidism, unspecified
CPT/HCPCS: 36415; 80061; 82043; 82565; 82570; 83036; 84443; 84520

== ENCOUNTER → 2022-05-18 09:40 | Outpatient (CLI) | payer MEDICARE, OTHER, SELFPAY ==
[2022-05-18 11:00] LABS: Hemoglobin A1C% w Est Avg Glu 6.2 % (4.0-6.0)
== END ==
PROVIDERS: PCP Student in an Organized Health Care Education/Training Program; Referring Provider Student in an Organized Health Care Education/Training Program; Visit Provider Student in an Organized Health Care Education/Training Program
DX: E11.9 Type 2 diabetes mellitus without complications (principal)
CPT/HCPCS: 36415; 83036

== ENCOUNTER → 2022-11-08 09:03 | Outpatient (CLI) | payer MEDICARE, OTHER, SELFPAY ==
[2022-11-08 10:00] LABS: Hemoglobin A1C% w Est Avg Glu 6.2 % (4.0-6.0)
[2022-11-08 10:02] LABS: BUN Creatinine Ratio 17.1 (6-22); Blood Urea Nitrogen 18 mg/dL (9-20); Carbon Dioxide 29 mmol/L (22-32); Chloride 102 mmol/L (98-107); Cholesterol 115 mg/dL (140-199); Estimated Glomerular Filt Rate > 60 mL/min (>60); Glucose 101 mg/dL (80-110); HDL Cholesterol 40 mg/dL (40-60); HEMOLYSIS < 15 (0-50); LDL Cholesterol Calculated 59 mg/dL (<100); Potassium 3.9 mmol/L (3.4-5.1); Sodium 138 mmol/L (137-145); Triglycerides 78 mg/dL (35-150)
[2022-11-08 10:30] LABS: TSH w/ Reflex to FT4 1.73 uIU/mL (0.47-4.68)
[2022-11-08 11:09] LABS: Creatinine Urine Random 219.8 mg/dL
[2022-11-08 11:13] LABS: Microalbumi Creatinin Ratio Ur 5.4 ug/mg CR (<30); Microalbumin Urine Random 1.2 mg/dL (0-1.6)
== END ==
PROVIDERS: PCP Student in an Organized Health Care Education/Training Program; Referring Provider Student in an Organized Health Care Education/Training Program; Visit Provider Student in an Organized Health Care Education/Training Program
DX: E11.9 Type 2 diabetes mellitus without complications (principal); E78.5 Hyperlipidemia, unspecified; E11.69 Type 2 diabetes mellitus with other specified complication; E03.9 Hypothyroidism, unspecified; I10 Essential (primary) hypertension
CPT/HCPCS: 36415; 80048; 80061; 82043; 82570; 83036; 84443

== ENCOUNTER 2023-01-24 12:00 | Outpatient (RCR) | payer MEDICARE, OTHER, SELFPAY ==
--- NOTE | 2022-12-01 16:00 | PT.OPPOC ---
Physical, Occupational & Speech Therapy At [facility] Current Diagnoses Foot drop, left foot (12/01/22) Other abnormalities of gait and mobility (12/01/22) History of falling (12/01/22) Visit Care Team Role Provider Type Boby Wing MD Attending Provider Physician Family Provider Primary Care Provider Referring Provider Specialty: Internal Medicine Address: [address] [place] [address], [facility] [address], [place], [facility] Email: [email or web address] Plan Of Care PT-OP-T Assessment and Plan Start: 11/30/22 21:31 Freq: Status: Active Protocol: Document 12/01/22 14:30 AMB (Rec: 12/03/22 10:58 AMB [id number]) Physical Therapy Assessment Rehab Potential Rehabilitation Potential Good Evaluation Complexity Number of Personal Factors/Comorbidities 1-2 Number of Body Systems Impaired 3 Clinical Presentation at Evaluation Stable Impairments Impairments Balance,Gait,Strength Goals Two Impairment Gait Short Term Goal (STG) Andry will ambulate over uneven terrain including grass, gravel, and curb steps without LOB. STG Duration 5 weeks Nursing Home Goal (LTG) Andry will report 0 falls since intiating physical therapy. LTG Duration 10 weeks One Impairment Fall risk Short Term Goal (STG) Andry will show reduced fall risk by scoring 23/24 or higher on the DGI. STG Duration 5 weeks Decaler Goal (LTG) Andry will be independent with a HEP to improve his balance and LE strength. LTG Duration 10 weeks Assessment Summary Assessment Andry attends physical therapy with increasing fall history. He is concerned regaring his shuffling gait but really he has left sided foot drop most likely from a lumbar surgery in the . Likely when he was younger he could manage the symptoms of the foot drop better, but now as he approaches his 80s it is leading to more falls. We assessed him with an off the shelf carbon fiber AFO and his gait improved significantly. Pt is hesitant to wear it consistently, but would consider wearing it when fatigued and when walking in the community. Sent referral to PCP. Andry would also benefit from physical therapy for strengthening, balance, and gait training to improve his gait and reduce his fall risk as much as possible. Physical Therapy Plan Frequency and Duration Frequency of Treatment 1x/Week Duration of treatment (weeks) 10 Plan of Care Start Date 12/01/22 Plan of Care End Date 02/09/23 Therapeutic Interventions Therapeutic Interventions Gait Training,Joint Mobilizations,Manual Therapy, Neuromuscular Re-education, Self-Care/Home Management, Therapeutic Activities, Therapeutic Exercises Next Visit Focus/Plan Next Note Type Treatment Note Next Visit Plan Begin with ankle strengthening , gait training, balance training Plan of Care Dates Plan of Care Start Date 12/01/22 Plan of Care End Date 02/09/23 Electronically Signed by: Vielka Rubio, PT 12/03/22 1605 If you are in agreement with this Plan of Care, please return a signed and dated copy. I have reviewed this Plan of Care and certify that the skilled therapy services above are required to meet the patient?s needs. Physician Signature Date Printed Name and Credentials Clinical Instructor Signature Printed Name and Credentials
--- NOTE | 2022-12-01 16:00 | PT.OIE ---
Addendum entered and electronically signed by Vielka Rubio, PT 12/13/22 12:48: Strength values were transposed originally. The left foot has dorsiflexion strength of 2+/5 not the right. Original Note: Current Diagnoses Foot drop, left foot (12/01/22) Other abnormalities of gait and mobility (12/01/22) History of falling (12/01/22) Past Medical History (Last Updated 10/24/20 @ 14:53 by Boby Wing MD) Abscess of leg Acquired hypothyroidism (01/18/17) Benign prostatic hyperplasia (01/18/17) BPH (benign prostatic hyperplasia) Coronary artery disease Diet-controlled type 2 diabetes mellitus Hyperlipidemia associated with type 2 diabetes mellitus Hypertension Hypothyroidism Osteoarthritis Past Surgical History (Last Updated 10/24/20 @ 14:53 by Boby Wing MD) History of back surgery History of open reduction and internal fixation (ORIF) procedure (~03/2014) Hx of heart artery stent (02/2017) Hx of surgical procedure (1989) Visit Care Team Role Provider Type Boby Wing MD Attending Provider Physician Family Provider Primary Care Provider Referring Provider Specialty: Internal Medicine Address: [address] [place] [address], [address], [facility] Email: [email or web address] Physical Therapy Initial Evaluation PT-OP-A Visit Information Start: 11/30/22 21:31 Freq: Status: Active Protocol: Document 12/01/22 14:39 AMB (Rec: 12/01/22 14:45 AMB [id number]) Out-Patient Physical Therapy Visit Information Visit Information Visit Type Initial Evaluation Visit Start Time 14:30 Visit Stop Time 15:15 Total Visit Minutes 45 Visit Number 1 PT-OP-B Current Condition Start: 11/30/22 21:31 Freq: Status: Active Protocol: Document 12/01/22 14:39 AMB (Rec: 12/01/22 14:45 AMB [id number]) Current Condition History of Current Condition Onset Date chronic Current Complaints Fall history History of Current Condition Falls, about 10 falls in the last 6 months. Fell, caught his foot and fell forward when wearing shoes on hardwood floor. Feels like he's shuffling his feet. States borderline diabetes, denies neuropathy. R leg does get some pain in the morning. Notices L leg sort of slaps down. Did get a concussion in 2019 with a fall. Hiking with poles. One level house, 3 stair to enter with 2 railings. Lives with . Had back surgery in 1995 somewhere in lumbar spine. Numbness in anterior tib region after surgery. PT-OP-C Subjective Start: 11/30/22 21:31 Freq: Status: Active Protocol: Document 12/01/22 14:30 AMB (Rec: 12/03/22 10:58 AMB [id number]) Patient Questionnaires Foot & Ankle Ability Measure- ADL and Sports FAAM-ADL Score 63 FAAM-ADL Impairment 20 to 39% Impaired (Score 50- 66) FAAM-Sport Score 23 FAAM-Sport Impairment 20 to 39% Impaired (Score 19- 24) Lower Extremity Functional Scale LEFS Score 63 LEFS Impairment 1 to 19% Impaired (Score 63-79 ) PT-OP-D Balance Start: 11/30/22 21:31 Freq: Status: Active Protocol: Document 12/01/22 14:30 AMB (Rec: 12/03/22 10:58 AMB [id number]) Balance Tests mCTSIB mCTSIB Position 1 30 mCTSIB Position 2 30 mCTSIB Position 3 30 ankle sway mCTSIB Position 4 30 ankle sway +++ Single Limb Standing Single Limb- Right 8 Single Limb- Left 5 PT-OP-G Mobility & Gait Start: 11/30/22 21:31 Freq: Status: Active Protocol: Document 12/01/22 14:30 AMB (Rec: 12/03/22 10:58 AMB [id number]) OP Gait Assessment Comments Gait Comments Pt ambulates with good step length and speed, no AD. Does have foot drop on the left which he reports worsens with fatigue. PT-OP-M Strength Start: 11/30/22 21:31 Freq: Status: Active Protocol: Document 12/01/22 14:30 AMB (Rec: 12/03/22 10:58 AMB [id number]) Hip Strength Hip Manual Muscle Testing Right Flexion (L2) 4+ Good+ Extension (S1) 4+ Good+ Left Flexion (L2) 4 Good Extension (S1) 4 Good Knee Strength Knee Manual Muscle Testing Right Flexion (S2) 4+ Good+ Extension (L3) 4+ Good+ Left Flexion (S2) 4 Good Extension (L3) 4 Good Ankle/Foot Strength Ankle and Foot Manual Muscle Testing Right Dorsiflexion (L4) 2+ Poor+ Plantarflexion (S1) 5 Normal Left Dorsiflexion (L4) 4+ Good+ Plantarflexion (S1) 5 Normal PT-OP-T Assessment and Plan Start: 11/30/22 21:31 Freq: Status: Active Protocol: Document 12/01/22 14:30 AMB (Rec: 12/03/22 10:58 AMB [id number]) Physical Therapy Assessment Rehab Potential Rehabilitation Potential Good Evaluation Complexity Number of Personal Factors/Comorbidities 1-2 Number of Body Systems Impaired 3 Clinical Presentation at Evaluation Stable Impairments Impairments Balance,Gait,Strength Goals Two Impairment Gait Short Term Goal (STG) Andry will ambulate over uneven terrain including grass, gravel, and curb steps without LOB. STG Duration 5 weeks Professor [employer] Goal (LTG) Andry will report 0 falls since intiating physical therapy. LTG Duration 10 weeks One Impairment Fall risk Short Term Goal (STG) Andry will show reduced fall risk by scoring 23/24 or higher on the DGI. STG Duration 5 weeks Care Home Goal (LTG) Andry will be independent with a HEP to improve his balance and LE strength. LTG Duration 10 weeks Assessment Summary Assessment Andry attends physical therapy with increasing fall history. He is concerned regaring his shuffling gait but really he has left sided foot drop most likely from a lumbar surgery in the . Likely when he was younger he could manage the symptoms of the foot drop better, but now as he approaches his 80s it is leading to more falls. We assessed him with an off the shelf carbon fiber AFO and his gait improved significantly. Pt is hesitant to wear it consistently, but would consider wearing it when fatigued and when walking in the community. Sent referral to PCP. Andry would also benefit from physical therapy for strengthening, balance, and gait training to improve his gait and reduce his fall risk as much as possible. Physical Therapy Plan Frequency and Duration Frequency of Treatment 1x/Week Duration of treatment (weeks) 10 Plan of Care Start Date 12/01/22 Plan of Care End Date 02/09/23 Therapeutic Interventions Therapeutic Interventions Gait Training,Joint Mobilizations,Manual Therapy, Neuromuscular Re-education, Self-Care/Home Management, Therapeutic Activities, Therapeutic Exercises Next Visit Focus/Plan Next Note Type Treatment Note Next Visit Plan Begin with ankle strengthening , gait training, balance training
--- NOTE | 2022-12-11 13:08 | PT.OTN ---
Current Diagnoses Foot drop, left foot (12/11/22) Other abnormalities of gait and mobility (12/11/22) History of falling (12/11/22) Physical Therapy Treatment Note PT-OP-A Visit Information Start: 11/30/22 21:31 Freq: Status: Active Protocol: Document 12/11/22 09:16 SW (Rec: 12/11/22 10:21 SW [id number]) Out-Patient Physical Therapy Visit Information Visit Information Visit Type Treatment Note Visit Start Time 09:16 Visit Stop Time 10:00 Total Visit Minutes 44 Visit Number 2 Number of TOP TRIMMER Visits 1 PT-OP-B Current Condition Start: 11/30/22 21:31 Freq: Status: Active Protocol: Document 12/01/22 14:39 AMB (Rec: 12/01/22 14:45 AMB [id number]) Current Condition History of Current Condition Onset Date chronic Current Complaints Fall history History of Current Condition Falls, about 10 falls in the last 6 months. Fell, caught his foot and fell forward when wearing shoes on hardwood floor. Feels like he's shuffling his feet. States borderline diabetes, denies neuropathy. R leg does get some pain in the morning. Notices L leg sort of slaps down. Did get a concussion in 2019 with a fall. Hiking with poles. One level house, 3 stair to enter with 2 railings. Lives with . Had back surgery in 1995 somewhere in lumbar spine. Numbness in anterior tib region after surgery. PT-OP-C Subjective Start: 11/30/22 21:31 Freq: Status: Active Protocol: Document 12/11/22 09:16 SW (Rec: 12/11/22 10:21 SW [id number]) OP-PT Subjective Patient Comments Patient Comments Patient reports he has been shuffling and wants to get back to activities without falls. Waiting on insurance for the L foot orthotic. PT-OP-D Balance Start: 11/30/22 21:31 Freq: Status: Active Protocol: Document 12/01/22 14:30 AMB (Rec: 12/03/22 10:58 AMB [id number]) Balance Tests mCTSIB mCTSIB Position 1 30 mCTSIB Position 2 30 mCTSIB Position 3 30 ankle sway mCTSIB Position 4 30 ankle sway +++ Single Limb Standing Single Limb- Right 8 Single Limb- Left 5 PT-OP-G Mobility & Gait Start: 11/30/22 21:31 Freq: Status: Active Protocol: Document 12/01/22 14:30 AMB (Rec: 12/03/22 10:58 AMB [id number]) OP Gait Assessment Comments Gait Comments Pt ambulates with good step length and speed, no AD. Does have foot drop on the left which he reports worsens with fatigue. PT-OP-M Strength Start: 11/30/22 21:31 Freq: Status: Active Protocol: Document 12/01/22 14:30 AMB (Rec: 12/03/22 10:58 AMB [id number]) Hip Strength Hip Manual Muscle Testing Right Flexion (L2) 4+ Good+ Extension (S1) 4+ Good+ Left Flexion (L2) 4 Good Extension (S1) 4 Good Knee Strength Knee Manual Muscle Testing Right Flexion (S2) 4+ Good+ Extension (L3) 4+ Good+ Left Flexion (S2) 4 Good Extension (L3) 4 Good Ankle/Foot Strength Ankle and Foot Manual Muscle Testing Right Dorsiflexion (L4) 2+ Poor+ Plantarflexion (S1) 5 Normal Left Dorsiflexion (L4) 4+ Good+ Plantarflexion (S1) 5 Normal PT-OP-Q Treatments Start: 11/30/22 21:31 Freq: Status: Active Protocol: Document 12/11/22 09:16 SW (Rec: 12/11/22 10:21 SW [id number]) Cardio Equipment Recumbent Bicycle Duration (Minutes) 6 Resistance 6>7 Seat Position 4 Therapeutic Exercises Supine Exercises Dorsiflexion Supine Exercise Name [place] eliminated, dorsiflexion strengthening Side left Resistance [place] Theraband, therapist assist Reps/Minutes 3x10 Comments Palpable muscle contraction Sitting Exercises Inv/ev Sitting Exercise Name Inv/ev Side bilateral Resistance [place] TB Dorsiflexion Sitting Exercise Name Bilateral Resistance RLE [place] TB, No resistance LLE Reps/Minutes 1x10 Gait Training Gait Activity gait Description Gait mechanics Level of Assistance SBA Surface smooth Distance/Duration x5 min Comments L foot drop, vc for knee and hip flexion to clear the LLE Neuro Re-Education Treatment Balance Activities Standing Details NBOS,Semi tandem,tandem Surface smooth Equipment @ countertop Reps/Duration 2x 30 Comments E0/EC Marches Details marches Surface smooth Equipment @ countertop Reps/Duration 2 x 10 Comments VC'ing for slower, concentric/ eccentric control Self-Care/Home Management Treatment Education Patient Education Body Mechanics,Fall Risk,Home Exercise Program,Safety PT-OP-T Assessment and Plan Start: 11/30/22 21:31 Freq: Status: Active Protocol: Document 12/11/22 09:16 SW (Rec: 12/11/22 10:21 SW [id number]) Physical Therapy Assessment Goals Two Impairment Gait Short Term Goal (STG) Andry will ambulate over uneven terrain including grass, gravel, and curb steps without LOB. STG Duration 5 weeks Dental Hygienist Goal (LTG) Andry will report 0 falls since intiating physical therapy. LTG Duration 10 weeks One Impairment Fall risk Short Term Goal (STG) Andry will show reduced fall risk by scoring 23/24 or higher on the DGI. STG Duration 5 weeks Dental Hygienist Goal (LTG) Andry will be independent with a HEP to improve his balance and LE strength. LTG Duration 10 weeks Assessment Summary Assessment Instructed patient in a gravity eliminated LLE dorsiflexion strengthening, added [place] theraband for resistance, palpable contraction, present, but minimal dorsiflexion observed with resistance. Focused on ankle strengthening this session, and began balance progression. Educated patient on gait mechanics, balance systems, and how progressions toward goals work. Instructed patient in hip and knee flexion to clear LLE due to foot drop. Physical Therapy Plan Frequency and Duration Frequency of Treatment 1x/Week Duration of treatment (weeks) 10 Plan of Care Start Date 12/01/22 Plan of Care End Date 02/09/23 Next Visit Focus/Plan Next Note Type Treatment Note Next Visit Plan Continue with ankle strengthening, gait training, balance training
--- NOTE | 2022-12-21 09:00 | PT.OTN ---
Current Diagnoses Foot drop, left foot (12/21/22) Other abnormalities of gait and mobility (12/21/22) History of falling (12/21/22) Physical Therapy Treatment Note PT-OP-A Visit Information Start: 11/30/22 21:31 Freq: Status: Active Protocol: Document 12/21/22 08:19 SP (Rec: 12/21/22 09:05 SP [id number]) Out-Patient Physical Therapy Visit Information Visit Information Visit Type Treatment Note Visit Start Time 08:19 Visit Stop Time 09:00 Total Visit Minutes 41 Visit Number 3 Number of SYSTEM ADMINISTRATION ADVISOR Visits 2 PT-OP-B Current Condition Start: 11/30/22 21:31 Freq: Status: Active Protocol: Document 12/01/22 14:39 AMB (Rec: 12/01/22 14:45 AMB [id number]) Current Condition History of Current Condition Onset Date chronic Current Complaints Fall history History of Current Condition Falls, about 10 falls in the last 6 months. Fell, caught his foot and fell forward when wearing shoes on hardwood floor. Feels like he's shuffling his feet. States borderline diabetes, denies neuropathy. R leg does get some pain in the morning. Notices L leg sort of slaps down. Did get a concussion in 2019 with a fall. Hiking with poles. One level house, 3 stair to enter with 2 railings. Lives with . Had back surgery in 1995 somewhere in lumbar spine. Numbness in anterior tib region after surgery. PT-OP-C Subjective Start: 11/30/22 21:31 Freq: Status: Active Protocol: Document 12/21/22 08:19 SP (Rec: 12/21/22 09:05 SP [id number]) OP-PT Subjective Patient Comments Patient Comments Pt reports doing well, compliant with his 3 exercises for home. He states others mention he seems to shuffle at times and it causes him to trip up. His L foot doesn't raise up. He states hasn't fallen or tripped up in few months especially when wears rubber soles. PT-OP-D Balance Start: 11/30/22 21:31 Freq: Status: Active Protocol: Document 12/01/22 14:30 AMB (Rec: 12/03/22 10:58 AMB [id number]) Balance Tests mCTSIB mCTSIB Position 1 30 mCTSIB Position 2 30 mCTSIB Position 3 30 ankle sway mCTSIB Position 4 30 ankle sway +++ Single Limb Standing Single Limb- Right 8 Single Limb- Left 5 PT-OP-G Mobility & Gait Start: 11/30/22 21:31 Freq: Status: Active Protocol: Document 12/01/22 14:30 AMB (Rec: 12/03/22 10:58 AMB [id number]) OP Gait Assessment Comments Gait Comments Pt ambulates with good step length and speed, no AD. Does have foot drop on the left which he reports worsens with fatigue. PT-OP-M Strength Start: 11/30/22 21:31 Freq: Status: Active Protocol: Document 12/01/22 14:30 AMB (Rec: 12/03/22 10:58 AMB [id number]) Hip Strength Hip Manual Muscle Testing Right Flexion (L2) 4+ Good+ Extension (S1) 4+ Good+ Left Flexion (L2) 4 Good Extension (S1) 4 Good Knee Strength Knee Manual Muscle Testing Right Flexion (S2) 4+ Good+ Extension (L3) 4+ Good+ Left Flexion (S2) 4 Good Extension (L3) 4 Good Ankle/Foot Strength Ankle and Foot Manual Muscle Testing Right Dorsiflexion (L4) 4+ Good+ Plantarflexion (S1) 5 Normal Left Dorsiflexion (L4) 2+ Poor+ Plantarflexion (S1) 5 Normal PT-OP-Q Treatments Start: 11/30/22 21:31 Freq: Status: Active Protocol: Document 12/21/22 08:19 SP (Rec: 12/21/22 09:05 SP [id number]) Cardio Equipment Recumbent Bicycle Duration (Minutes) 6 Resistance 7 Seat Position 4- 2.63 miles Other 65 RPMs: WALTER 13 Somewhat hard Therapeutic Exercises Sitting Exercises STS Sitting Exercise Name added to [facility] Equipment Used mesh chair, arms across chest Reps/Minutes x10- issued 2x/day Comments improved controlled descent with cues x2 Dorsiflexion Sitting Exercise Name Bilateral Side bilateral Resistance [place] TB (add orange #2 next) Reps/Minutes x10 each LE Comments Able to complete L forefoot lift 12/21/22. Standing Exercises resisted side stepping Standing Exercise Name added to [facility] Resistance [place] TB #1 at ankles Reps/Minutes 10 ft x4 laps Comments cued x1 for trail LE clearance and feet // Neuro Re-Education Treatment Balance Activities step up and overs Details f/b/lateral up over Surface 6 step +blue foam, gait belt Equipment 4# leg wt Reps/Duration x10 each direction Comments cued softer stepping improved SLS time and stability core and hip abd fac. hurdles Details next tx Comments 1. floor 2. foam cushions 3. pods STS Equipment SBA no instability Reps/Duration 5 reps each Comments 1. blue foam 2. tilt board (lateral pos) good form stability PT-OP-T Assessment and Plan Start: 11/30/22 21:31 Freq: Status: Active Protocol: Document 12/21/22 08:19 SP (Rec: 12/21/22 09:05 SP [id number]) Physical Therapy Assessment Goals Two Impairment Gait Short Term Goal (STG) Andry will ambulate over uneven terrain including grass, gravel, and curb steps without LOB. STG Duration 5 weeks Bead Machine Operator Goal (LTG) Andry will report 0 falls since intiating physical therapy. LTG Duration 10 weeks One Impairment Fall risk Short Term Goal (STG) Andry will show reduced fall risk by scoring 23/24 or higher on the DGI. STG Duration 5 weeks [facility] Goal (LTG) Andry will be independent with a HEP to improve his balance and LE strength. LTG Duration 10 weeks Assessment Summary Assessment Pt improved understanding and corrections posture, improved foot clearance with core/hip fac during resisted balance uneven stepup/down/ upovers with PRN rail contact. Good feedback muscle effort and challenge band walk and STS for home. Ed walk tall, look forward vs looking down when walking for improved foot clearance and stability throughout tx today compared to previous tx. Physical Therapy Plan Frequency and Duration Frequency of Treatment 1x/Week Duration of treatment (weeks) 10 Plan of Care Start Date 12/01/22 Plan of Care End Date 02/09/23 Therapeutic Interventions Therapeutic Interventions Gait Training,Joint Mobilizations,Manual Therapy, Neuromuscular Re-education, Self-Care/Home Management, Therapeutic Activities, Therapeutic Exercises Next Visit Focus/Plan Next Note Type Treatment Note Next Visit Plan Assess response to resisted band walk, STS and balance last tx. Next add dynamic balance uneven hurdles, sport cord step ups, dynamic HTs during gait. POC:Continue with ankle strengthening, gait training, balance training
--- NOTE | 2022-12-27 14:35 | PT.OTN ---
Current Diagnoses Foot drop, left foot (12/27/22) Other abnormalities of gait and mobility (12/27/22) History of falling (12/27/22) Physical Therapy Treatment Note PT-OP-A Visit Information Start: 11/30/22 21:31 Freq: Status: Active Protocol: Document 12/27/22 10:58 AMB (Rec: 12/27/22 11:31 AMB [id number]) Out-Patient Physical Therapy Visit Information Visit Information Visit Type Treatment Note Visit Start Time 10:45 Visit Stop Time 11:30 Total Visit Minutes 45 Visit Number 4 PT-OP-B Current Condition Start: 11/30/22 21:31 Freq: Status: Active Protocol: Document 12/01/22 14:39 AMB (Rec: 12/01/22 14:45 AMB [id number]) Current Condition History of Current Condition Onset Date chronic Current Complaints Fall history History of Current Condition Falls, about 10 falls in the last 6 months. Fell, caught his foot and fell forward when wearing shoes on hardwood floor. Feels like he's shuffling his feet. States borderline diabetes, denies neuropathy. R leg does get some pain in the morning. Notices L leg sort of slaps down. Did get a concussion in 2019 with a fall. Hiking with poles. One level house, 3 stair to enter with 2 railings. Lives with . Had back surgery in 1995 somewhere in lumbar spine. Numbness in anterior tib region after surgery. PT-OP-C Subjective Start: 11/30/22 21:31 Freq: Status: Active Protocol: Document 12/27/22 10:45 AMB (Rec: 12/27/22 13:25 AMB [id number]) OP-PT Subjective Patient Comments Patient Comments Pt reports he is going to see pantomimist tomorrow. Spends a lot of time in the garden, worried aobut his posture. PT-OP-D Balance Start: 11/30/22 21:31 Freq: Status: Active Protocol: Document 12/01/22 14:30 AMB (Rec: 12/03/22 10:58 AMB [id number]) Balance Tests mCTSIB mCTSIB Position 1 30 mCTSIB Position 2 30 mCTSIB Position 3 30 ankle sway mCTSIB Position 4 30 ankle sway +++ Single Limb Standing Single Limb- Right 8 Single Limb- Left 5 PT-OP-G Mobility & Gait Start: 11/30/22 21:31 Freq: Status: Active Protocol: Document 12/01/22 14:30 AMB (Rec: 12/03/22 10:58 AMB [id number]) OP Gait Assessment Comments Gait Comments Pt ambulates with good step length and speed, no AD. Does have foot drop on the left which he reports worsens with fatigue. PT-OP-M Strength Start: 11/30/22 21:31 Freq: Status: Active Protocol: Document 12/01/22 14:30 AMB (Rec: 12/03/22 10:58 AMB [id number]) Hip Strength Hip Manual Muscle Testing Right Flexion (L2) 4+ Good+ Extension (S1) 4+ Good+ Left Flexion (L2) 4 Good Extension (S1) 4 Good Knee Strength Knee Manual Muscle Testing Right Flexion (S2) 4+ Good+ Extension (L3) 4+ Good+ Left Flexion (S2) 4 Good Extension (L3) 4 Good Ankle/Foot Strength Ankle and Foot Manual Muscle Testing Right Dorsiflexion (L4) 4+ Good+ Plantarflexion (S1) 5 Normal Left Dorsiflexion (L4) 2+ Poor+ Plantarflexion (S1) 5 Normal PT-OP-Q Treatments Start: 11/30/22 21:31 Freq: Status: Active Protocol: Document 12/27/22 10:58 AMB (Rec: 12/27/22 11:31 AMB [id number]) Gym Equipment Shuttle Balance RED Details a/p and m/l Comments with head turns Therapeutic Exercises Sitting Exercises STS Sitting Exercise Name added to HEP Equipment Used mesh chair, arms across chest Reps/Minutes x10- issued 2x/day Comments improved controlled descent with cues x2 Standing Exercises heel/toe walking Standing Exercise Name added heel walking to HEP Reps/Minutes 2x10 pec stretch Reps/Minutes 30x2 Comments in corner/doorway rows Resistance blue Reps/Minutes 2x10 Comments cue posture resisted side stepping Standing Exercise Name added to HEP Resistance [place] TB #1 at ankles Reps/Minutes 10 ft x4 laps Comments cued x1 for trail LE clearance and feet // Neuro Re-Education Treatment Balance Activities step up and overs Details f/b/lateral up over Surface 6 step +blue foam, gait belt Equipment 4# leg wt Reps/Duration x10 each direction Comments cued softer stepping improved SLS time and stability core and hip abd fac. hurdles Comments 1. floor 2. foam cushions Marches Details marches Surface smooth Equipment @ countertop Reps/Duration 2 x 10 Comments VC'ing for slower, concentric/ eccentric control PT-OP-T Assessment and Plan Start: 11/30/22 21:31 Freq: Status: Active Protocol: Document 12/27/22 10:58 AMB (Rec: 12/27/22 11:31 AMB [id number]) Physical Therapy Assessment Goals Two Impairment Gait Short Term Goal (STG) Andry will ambulate over uneven terrain including grass, gravel, and curb steps without LOB. STG Duration 5 weeks Senior Living Goal (LTG) Andry will report 0 falls since intiating physical therapy. LTG Duration 10 weeks One Impairment Fall risk Short Term Goal (STG) Andry will show reduced fall risk by scoring 23/24 or higher on the DGI. STG Duration 5 weeks Senior Living Goal (LTG) Andry will be independent with a HEP to improve his balance and LE strength. LTG Duration 10 weeks Assessment Summary Assessment Andry did well with exercises today, concerned about posture so given pec stretch and rows , pt does have a bit of fatigue with dorsiflexion later in sessionl. Physical Therapy Plan Frequency and Duration Frequency of Treatment 1x/Week Duration of treatment (weeks) 10 Plan of Care Start Date 12/01/22 Plan of Care End Date 02/09/23 Therapeutic Interventions Therapeutic Interventions Gait Training,Joint Mobilizations,Manual Therapy, Neuromuscular Re-education, Self-Care/Home Management, Therapeutic Activities, Therapeutic Exercises Next Visit Focus/Plan Next Note Type Treatment Note Next Visit Plan Add sport cord step ups, dynamic HTs during gait. POC:Continue with ankle strengthening, gait training, balance training
--- NOTE | 2023-01-03 12:56 | PT.OTN ---
Current Diagnoses Foot drop, left foot (01/03/23) Other abnormalities of gait and mobility (01/03/23) History of falling (01/03/23) Physical Therapy Treatment Note PT-OP-A Visit Information Start: 11/30/22 21:31 Freq: Status: Active Protocol: Document 01/03/23 12:00 AMB (Rec: 01/03/23 12:56 AMB [id number]) Out-Patient Physical Therapy Visit Information Visit Information Visit Type Treatment Note Visit Start Time 12:00 Visit Stop Time 12:45 Total Visit Minutes 45 Visit Number 5 PT-OP-B Current Condition Start: 11/30/22 21:31 Freq: Status: Active Protocol: Document 12/01/22 14:39 AMB (Rec: 12/01/22 14:45 AMB [id number]) Current Condition History of Current Condition Onset Date chronic Current Complaints Fall history History of Current Condition Falls, about 10 falls in the last 6 months. Fell, caught his foot and fell forward when wearing shoes on hardwood floor. Feels like he's shuffling his feet. States borderline diabetes, denies neuropathy. R leg does get some pain in the morning. Notices L leg sort of slaps down. Did get a concussion in 2019 with a fall. Hiking with poles. One level house, 3 stair to enter with 2 railings. Lives with . Had back surgery in 1995 somewhere in lumbar spine. Numbness in anterior tib region after surgery. PT-OP-C Subjective Start: 11/30/22 21:31 Freq: Status: Active Protocol: Document 01/03/23 12:00 AMB (Rec: 01/03/23 12:56 AMB [id number]) OP-PT Subjective Patient Comments Patient Comments Pt denies any falls, went on a vacation and did some hiking and biking. Does have new AFO . Likes it. PT-OP-D Balance Start: 11/30/22 21:31 Freq: Status: Active Protocol: Document 12/01/22 14:30 AMB (Rec: 12/03/22 10:58 AMB [id number]) Balance Tests mCTSIB mCTSIB Position 1 30 mCTSIB Position 2 30 mCTSIB Position 3 30 ankle sway mCTSIB Position 4 30 ankle sway +++ Single Limb Standing Single Limb- Right 8 Single Limb- Left 5 PT-OP-G Mobility & Gait Start: 11/30/22 21:31 Freq: Status: Active Protocol: Document 12/01/22 14:30 AMB (Rec: 12/03/22 10:58 AMB [id number]) OP Gait Assessment Comments Gait Comments Pt ambulates with good step length and speed, no AD. Does have foot drop on the left which he reports worsens with fatigue. PT-OP-M Strength Start: 11/30/22 21:31 Freq: Status: Active Protocol: Document 12/01/22 14:30 AMB (Rec: 12/03/22 10:58 AMB [id number]) Hip Strength Hip Manual Muscle Testing Right Flexion (L2) 4+ Good+ Extension (S1) 4+ Good+ Left Flexion (L2) 4 Good Extension (S1) 4 Good Knee Strength Knee Manual Muscle Testing Right Flexion (S2) 4+ Good+ Extension (L3) 4+ Good+ Left Flexion (S2) 4 Good Extension (L3) 4 Good Ankle/Foot Strength Ankle and Foot Manual Muscle Testing Right Dorsiflexion (L4) 4+ Good+ Plantarflexion (S1) 5 Normal Left Dorsiflexion (L4) 2+ Poor+ Plantarflexion (S1) 5 Normal PT-OP-Q Treatments Start: 11/30/22 21:31 Freq: Status: Active Protocol: Document 01/03/23 12:00 AMB (Rec: 01/03/23 12:56 AMB [id number]) Gym Equipment Shuttle Balance RED Details BLUE Reps/Duration a/p and m/l Comments with head turns Neuro Re-Education Treatment Balance Activities single leg stance Comments 15 sec, modifications to make more challenging bosu ball Details NBOS Comments with dual task, increased ankle movement walking with head turns Details vertical and horizontal Comments HEP step up and overs Details f/b/lateral up over Surface 6 step +blue foam, gait belt Reps/Duration x10 each direction Comments cued softer stepping improved SLS time and stability core and hip abd fac. hurdles Comments 1. floor 2. foam cushions 3. pods 4. 8 step PT-OP-T Assessment and Plan Start: 11/30/22 21:31 Freq: Status: Active Protocol: Document 01/03/23 12:00 AMB (Rec: 01/03/23 12:56 AMB [id number]) Physical Therapy Assessment Goals Two Impairment Gait Short Term Goal (STG) Ray will ambulate over uneven terrain including grass, gravel, and curb steps without LOB. STG Duration 5 weeks Half-Way Goal (LTG) Andry will report 0 falls since intiating physical therapy. LTG Duration 10 weeks One Impairment Fall risk Short Term Goal (STG) Andry will show reduced fall risk by scoring 23/24 or higher on the DGI. STG Duration 5 weeks Half-Way Goal (LTG) Andry will be independent with a HEP to improve his balance and LE strength. LTG Duration 10 weeks Assessment Summary Assessment Andry is doing well with PT and new brace. No new falls. Able to single leg balance for 15 seconds+, did educate in stair management when carrying . Physical Therapy Plan Frequency and Duration Frequency of Treatment 1x/Week Duration of treatment (weeks) 10 Plan of Care Start Date 12/01/22 Plan of Care End Date 02/09/23 Therapeutic Interventions Therapeutic Interventions Gait Training,Joint Mobilizations,Manual Therapy, Neuromuscular Re-education, Self-Care/Home Management, Therapeutic Activities, Therapeutic Exercises
--- NOTE | 2023-01-10 12:45 | PT.OTN ---
Current Diagnoses Foot drop, left foot (01/10/23) Other abnormalities of gait and mobility (01/10/23) History of falling (01/10/23) Physical Therapy Treatment Note PT-OP-A Visit Information Start: 11/30/22 21:31 Freq: Status: Active Protocol: Document 01/10/23 12:02 SP (Rec: 01/10/23 13:01 SP [id number]) Out-Patient Physical Therapy Visit Information Visit Information Visit Type Treatment Note Visit Start Time 12:02 Visit Stop Time 12:45 Total Visit Minutes 42 Visit Number 6 Number of PLANT OPERATIONS VICE PRESIDENT Visits 1 PT-OP-B Current Condition Start: 11/30/22 21:31 Freq: Status: Active Protocol: Document 12/01/22 14:39 AMB (Rec: 12/01/22 14:45 AMB [id number]) Current Condition History of Current Condition Onset Date chronic Current Complaints Fall history History of Current Condition Falls, about 10 falls in the last 6 months. Fell, caught his foot and fell forward when wearing shoes on hardwood floor. Feels like he's shuffling his feet. States borderline diabetes, denies neuropathy. R leg does get some pain in the morning. Notices L leg sort of slaps down. Did get a concussion in 2019 with a fall. Hiking with poles. One level house, 3 stair to enter with 2 railings. Lives with . Had back surgery in 1995 somewhere in lumbar spine. Numbness in anterior tib region after surgery. PT-OP-C Subjective Start: 11/30/22 21:31 Freq: Status: Active Protocol: Document 01/10/23 12:02 SP (Rec: 01/10/23 13:01 SP [id number]) OP-PT Subjective Patient Comments Patient Comments Pt felt did well after last tx and enjoyed the increase balance challenging activities . He arrives with RORY COPPOLA and reports has been a life savor with balance. He stated does the SLS at home but some days not as good as others and unsure why. PT-OP-D Balance Start: 11/30/22 21:31 Freq: Status: Active Protocol: Document 12/01/22 14:30 AMB (Rec: 12/03/22 10:58 AMB [id number]) Balance Tests mCTSIB mCTSIB Position 1 30 mCTSIB Position 2 30 mCTSIB Position 3 30 ankle sway mCTSIB Position 4 30 ankle sway +++ Single Limb Standing Single Limb- Right 8 Single Limb- Left 5 PT-OP-G Mobility & Gait Start: 11/30/22 21:31 Freq: Status: Active Protocol: Document 12/01/22 14:30 AMB (Rec: 12/03/22 10:58 AMB [id number]) OP Gait Assessment Comments Gait Comments Pt ambulates with good step length and speed, no AD. Does have foot drop on the left which he reports worsens with fatigue. PT-OP-M Strength Start: 11/30/22 21:31 Freq: Status: Active Protocol: Document 12/01/22 14:30 AMB (Rec: 12/03/22 10:58 AMB [id number]) Hip Strength Hip Manual Muscle Testing Right Flexion (L2) 4+ Good+ Extension (S1) 4+ Good+ Left Flexion (L2) 4 Good Extension (S1) 4 Good Knee Strength Knee Manual Muscle Testing Right Flexion (S2) 4+ Good+ Extension (L3) 4+ Good+ Left Flexion (S2) 4 Good Extension (L3) 4 Good Ankle/Foot Strength Ankle and Foot Manual Muscle Testing Right Dorsiflexion (L4) 4+ Good+ Plantarflexion (S1) 5 Normal Left Dorsiflexion (L4) 2+ Poor+ Plantarflexion (S1) 5 Normal PT-OP-Q Treatments Start: 11/30/22 21:31 Freq: Status: Active Protocol: Document 01/10/23 12:02 SP (Rec: 01/10/23 13:01 SP [id number]) Therapeutic Exercises Sitting Exercises STS Sitting Exercise Name added to HEP Equipment Used mesh chair, arms across chest Reps/Minutes 10 reps in 30 sec, foam pad: Comments improved controlled descent each rep Standing Exercises resisted side stepping Standing Exercise Name Reviewed HEP- Fwd, bkd, side stepping Resistance RTB #1 at ankles Reps/Minutes 10 ft x4 laps Comments cued x1 for trail LE clearance and feet // Gait Training Gait Activity stairs Device Used 0 Distance/Duration MAP bldg stairs (28), 7 outsice stairs Treatment Focus foot clearance, receiprocal stepping Comments good stability and able to descend with quicker stepping uneven surface Description grass, incline/decline landscaping Device Used AFO donpauline LLE Level of Assistance S Distance/Duration 50 ft Treatment Focus stride, foot clearance, obstacle mgt Comments great stability, no trunks way /deviations, suggested bring Neuro Re-Education Treatment Balance Activities single leg stance Equipment near rail, not used Comments pre ther ex: R 60 L 60 * no trunk sways- very stable walking with head turns Details vertical, horizontal, quick step, pivo Reps/Duration 300 ft hallway Comments slight slower during head turns, improve with cues arm swing with TS rotation, core fac better trunk centering corrections hurdles Comments 1. floor 01/10 2. foam cushions 01/10 3. pods next tx continue 4. 8 step- next tx continue PT-OP-T Assessment and Plan Start: 11/30/22 21:31 Freq: Status: Active Protocol: Document 01/10/23 12:02 SP (Rec: 01/10/23 13:01 SP [id number]) Physical Therapy Assessment Goals Two Impairment Gait Short Term Goal (STG) Andry will ambulate over uneven terrain including grass, gravel, and curb steps without LOB. 01/10/23: goal met: very stable over grassy incline/decline/ gravel, lateral slant landscaping S/ iGgi. no trunk sway deviations at all. STG Duration 5 weeks GOAL MET 01/10/23 Correction Goal (LTG) Andry will report 0 falls since intiating physical therapy. 01/09/23: continuous recheck, no falls since started PT. LTG Duration 10 weeks progressin01/10/23 One Impairment Fall risk Short Term Goal (STG) Andry will show reduced fall risk by scoring 23/24 or higher on the DGI. STG Duration 5 weeks Supervisor Sawing And Assembly Goal (LTG) Andry will be independent with a HEP to improve his balance and LE strength. 01/09/23: STS, SLS, resisted fwd,bwd,side stepping. LTG Duration 10 weeks Assessment Summary Assessment Pt improved stabililty and self corrections post cues ( AFO donned LLE arrival and throughout tx) tall posturing , core fac, hip abd strengthening HEP review. No unsteadiness over uneven surface outdoors and indoor obstacle course. Physical Therapy Plan Frequency and Duration Frequency of Treatment 1x/Week Duration of treatment (weeks) 10 Plan of Care Start Date 12/01/22 Plan of Care End Date 02/09/23 Therapeutic Interventions Therapeutic Interventions Gait Training,Joint Mobilizations,Manual Therapy, Neuromuscular Re-education, Self-Care/Home Management, Therapeutic Activities, Therapeutic Exercises Next Visit Focus/Plan Next Note Type Treatment Note Next Visit Plan Add sport cord step ups, dynamic HTs during gait. Continue uneven pods, higher steps for trail assimulation. POC:Continue with ankle strengthening, gait training, balance training
--- NOTE | 2023-01-17 12:45 | PT.OTN ---
Current Diagnoses Foot drop, left foot (01/17/23) Other abnormalities of gait and mobility (01/17/23) History of falling (01/17/23) Physical Therapy Treatment Note PT-OP-A Visit Information Start: 11/30/22 21:31 Freq: Status: Active Protocol: Document 01/17/23 12:00 SP (Rec: 01/17/23 12:52 SP [id number]) Out-Patient Physical Therapy Visit Information Visit Information Visit Type Treatment Note Visit Start Time 12:00 Visit Stop Time 12:45 Total Visit Minutes 45 Visit Number 7 Number of LICENSED NUCLEAR OPERATOR Visits 2 PT-OP-B Current Condition Start: 11/30/22 21:31 Freq: Status: Active Protocol: Document 12/01/22 14:39 AMB (Rec: 12/01/22 14:45 AMB [id number]) Current Condition History of Current Condition Onset Date chronic Current Complaints Fall history History of Current Condition Falls, about 10 falls in the last 6 months. Fell, caught his foot and fell forward when wearing shoes on hardwood floor. Feels like he's shuffling his feet. States borderline diabetes, denies neuropathy. R leg does get some pain in the morning. Notices L leg sort of slaps down. Did get a concussion in 2019 with a fall. Hiking with poles. One level house, 3 stair to enter with 2 railings. Lives with . Had back surgery in 1995 somewhere in lumbar spine. Numbness in anterior tib region after surgery. PT-OP-C Subjective Start: 11/30/22 21:31 Freq: Status: Active Protocol: Document 01/17/23 12:00 SP (Rec: 01/17/23 12:52 SP [id number]) OP-PT Subjective Patient Comments Patient Comments Pt arrival ABDON cárdenas. 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 Didn't do much HEP since last tx with away on vacation. Ragan pretty good after last tx. PT-OP-D Balance Start: 11/30/22 21:31 Freq: Status: Active Protocol: Document 12/01/22 14:30 AMB (Rec: 12/03/22 10:58 AMB [id number]) Balance Tests mCTSIB mCTSIB Position 1 30 mCTSIB Position 2 30 mCTSIB Position 3 30 ankle sway mCTSIB Position 4 30 ankle sway +++ Single Limb Standing Single Limb- Right 8 Single Limb- Left 5 PT-OP-E Functional Tests Start: 11/30/22 21:31 Freq: Status: Active Protocol: Document 01/17/23 12:00 SP (Rec: 01/17/23 12:52 SP [id number]) Functional Tests Dynamic Gait Index (DGI) Score 24 DGI Impairment Rating 0% Impaired (Score 24) PT-OP-G Mobility & Gait Start: 11/30/22 21:31 Freq: Status: Active Protocol: Document 12/01/22 14:30 AMB (Rec: 12/03/22 10:58 AMB [id number]) OP Gait Assessment Comments Gait Comments Pt ambulates with good step length and speed, no AD. Does have foot drop on the left which he reports worsens with fatigue. PT-OP-M Strength Start: 11/30/22 21:31 Freq: Status: Active Protocol: Document 12/01/22 14:30 AMB (Rec: 12/03/22 10:58 AMB [id number]) Hip Strength Hip Manual Muscle Testing Right Flexion (L2) 4+ Good+ Extension (S1) 4+ Good+ Left Flexion (L2) 4 Good Extension (S1) 4 Good Knee Strength Knee Manual Muscle Testing Right Flexion (S2) 4+ Good+ Extension (L3) 4+ Good+ Left Flexion (S2) 4 Good Extension (L3) 4 Good Ankle/Foot Strength Ankle and Foot Manual Muscle Testing Right Dorsiflexion (L4) 4+ Good+ Plantarflexion (S1) 5 Normal Left Dorsiflexion (L4) 2+ Poor+ Plantarflexion (S1) 5 Normal PT-OP-Q Treatments Start: 11/30/22 21:31 Freq: Status: Active Protocol: Document 01/17/23 12:00 SP (Rec: 01/17/23 12:52 SP [id number]) Therapeutic Exercises Standing Exercises resisted side stepping Standing Exercise Name Reviewed HEP- Fwd, bkd, side stepping Resistance RTB (inPT), home #1>#3 at ankles Reps/Minutes 20 ft x4 laps each Comments cued x1 for trail LE clearance and feet //, head up Neuro Re-Education Treatment Balance Activities DGI Comments w/ LLE AFO donned sport cord Details f/b/lateral step ups (Red) Equipment 6 step + bluefoam Reps/Duration 10 reps each direction each LE lead Comments off balance initial 10% A recover from retro lean, cued slow wt shift fwd con/ecc stepping CGA>close SBA obstacle course Details 6 pods under black mat on top blue mat Surface uneven surface trail assimulation Comments walked over 3 laps SBA> Mod I bosu ball Details WBOS, NBOS Reps/Duration 5-10 reps Comments 1. HT stationary 2. mini squat (dome and flat) occasional contact rail 3. step ups walking with head turns Details vertical, horizontal, quick step, pivot, slow/fast speed Reps/Duration 100 ft hallway Comments fine during DGI. PT-OP-T Assessment and Plan Start: 11/30/22 21:31 Freq: Status: Active Protocol: Document 01/17/23 12:00 SP (Rec: 01/17/23 12:52 SP [id number]) Physical Therapy Assessment Goals Two Impairment Gait Short Term Goal (STG) Andry will ambulate over uneven terrain including grass, gravel, and curb steps without LOB. 01/10/23: goal met: very stable over grassy incline/decline/ gravel, lateral slant landscaping S/ Gigi. no trunk sway deviations at all. STG Duration 5 weeks GOAL MET 01/10/23 Remotely Piloted Vehicle Controller Goal (LTG) Andry will report 0 falls since intiating physical therapy. 01/09/23: continuous recheck, no falls since started PT. 01/17/23: GOAL MET: no falls or near misses since eval LTG Duration 10 weeks GOAL MET: 01/17/23 One Impairment Fall risk Short Term Goal (STG) Andry will show reduced fall risk by scoring 23/24 or higher on the DGI. 01/17/23: GOAL MET STG Duration 5 weeks GOAL MET 01/17/23 Remotely Piloted Vehicle Controller Goal (LTG) Andry will be independent with a HEP to improve his balance and LE strength. 01/10/23: STS, SLS, resisted fwd,bwd,side stepping. 01/17/23: discussed and performed during tx: f/back step, lateral step ups and mini squat BOSU dome and flat- contact rail front as needed for stability. SBA LTG Duration 10 weeks progressin01/17/23 Progress Towards Goals Progress Comments MET GOALs : GOAL #2m STG #1. Assessment Summary Assessment Pt making good gains in dynamic balance with support of LLE AFO. Initial off balance bosu stepping and resisted uneven step up/down, improved with cues wt shift top surface (CGO over ABISAI) improved SBA and proper use rail contact as needed 25%>10% time. Pt requests to work toward home and/or [employer] gym program. Declined BOSU ther ex HO performed today. Physical Therapy Plan Frequency and Duration Frequency of Treatment 1x/Week Duration of treatment (weeks) 10 Plan of Care Start Date 12/01/22 Plan of Care End Date 02/09/23 Therapeutic Interventions Therapeutic Interventions Gait Training,Joint Mobilizations,Manual Therapy, Neuromuscular Re-education, Self-Care/Home Management, Therapeutic Activities, Therapeutic Exercises Next Visit Focus/Plan Next Note Type Treatment Note Next Visit Plan Create home/gym program to do self, see how many appts still need to do on own. Dynamic balance activities, multitasking. Continue uneven pods, higher steps for trail assimulation. Assess # appts/visits needed. POC:Continue with ankle strengthening, gait training, balance training
--- NOTE | 2023-01-24 12:00 | PT.OTN ---
Current Diagnoses Foot drop, left foot (01/24/23) Other abnormalities of gait and mobility (01/24/23) History of falling (01/24/23) Physical Therapy Treatment Note PT-OP-A Visit Information Start: 11/30/22 21:31 Freq: Status: Active Protocol: Document 01/24/23 12:01 AMB (Rec: 01/24/23 12:36 AMB [id number]) Out-Patient Physical Therapy Visit Information Visit Information Visit Type Treatment Note Visit Start Time 12:00 Visit Stop Time 12:45 Total Visit Minutes 45 Visit Number 8 PT-OP-B Current Condition Start: 11/30/22 21:31 Freq: Status: Active Protocol: Document 12/01/22 14:39 AMB (Rec: 12/01/22 14:45 AMB [id number]) Current Condition History of Current Condition Onset Date chronic Current Complaints Fall history History of Current Condition Falls, about 10 falls in the last 6 months. Fell, caught his foot and fell forward when wearing shoes on hardwood floor. Feels like he's shuffling his feet. States borderline diabetes, denies neuropathy. R leg does get some pain in the morning. Notices L leg sort of slaps down. Did get a concussion in 2019 with a fall. Hiking with poles. One level house, 3 stair to enter with 2 railings. Lives with . Had back surgery in 1995 somewhere in lumbar spine. Numbness in anterior tib region after surgery. PT-OP-C Subjective Start: 11/30/22 21:31 Freq: Status: Active Protocol: Document 01/24/23 12:01 AMB (Rec: 01/24/23 12:36 AMB [id number]) OP-PT Subjective Patient Comments Patient Comments Pt doing well very active in the summer. PT-OP-D Balance Start: 11/30/22 21:31 Freq: Status: Active Protocol: Document 12/01/22 14:30 AMB (Rec: 12/03/22 10:58 AMB [id number]) Balance Tests mCTSIB mCTSIB Position 1 30 mCTSIB Position 2 30 mCTSIB Position 3 30 ankle sway mCTSIB Position 4 30 ankle sway +++ Single Limb Standing Single Limb- Right 8 Single Limb- Left 5 PT-OP-E Functional Tests Start: 11/30/22 21:31 Freq: Status: Active Protocol: Document 01/17/23 12:00 SP (Rec: 01/17/23 12:52 SP [id number]) Functional Tests Dynamic Gait Index (DGI) Score 24 DGI Impairment Rating 0% Impaired (Score 24) PT-OP-G Mobility & Gait Start: 11/30/22 21:31 Freq: Status: Active Protocol: Document 12/01/22 14:30 AMB (Rec: 12/03/22 10:58 AMB [id number]) OP Gait Assessment Comments Gait Comments Pt ambulates with good step length and speed, no AD. Does have foot drop on the left which he reports worsens with fatigue. PT-OP-M Strength Start: 11/30/22 21:31 Freq: Status: Active Protocol: Document 12/01/22 14:30 AMB (Rec: 12/03/22 10:58 AMB [id number]) Hip Strength Hip Manual Muscle Testing Right Flexion (L2) 4+ Good+ Extension (S1) 4+ Good+ Left Flexion (L2) 4 Good Extension (S1) 4 Good Knee Strength Knee Manual Muscle Testing Right Flexion (S2) 4+ Good+ Extension (L3) 4+ Good+ Left Flexion (S2) 4 Good Extension (L3) 4 Good Ankle/Foot Strength Ankle and Foot Manual Muscle Testing Right Dorsiflexion (L4) 4+ Good+ Plantarflexion (S1) 5 Normal Left Dorsiflexion (L4) 2+ Poor+ Plantarflexion (S1) 5 Normal PT-OP-Q Treatments Start: 11/30/22 21:31 Freq: Status: Active Protocol: Document 01/24/23 12:00 AMB (Rec: 01/24/23 15:28 AMB [id number]) Therapeutic Exercises Sitting Exercises STS Sitting Exercise Name added to HEP Equipment Used mesh chair, arms across chest Reps/Minutes 10 reps in 30 sec, foam pad: Comments improved controlled descent each rep Dorsiflexion Sitting Exercise Name Bilateral Side bilateral Resistance blue Reps/Minutes x10 each LE Comments Able to complete L forefoot lift 12/21/22. Standing Exercises heel/toe walking Standing Exercise Name added heel walking to HEP Reps/Minutes 2x10 Neuro Re-Education Treatment Balance Activities bosu ball Details WBOS, NBOS Reps/Duration 5-10 reps Comments 1. HT stationary 2. mini squat (dome and flat) occasional contact rail 3. step ups step up and overs Details f/b/lateral up over Surface 6 step +blue foam, gait belt Reps/Duration x10 each direction Comments cued softer stepping improved SLS time and stability core and hip abd fac. hurdles Comments 1. floor 01/10 2. foam cushions 01/10 3. pods next tx continue 4. 8 step- next tx continue STS Equipment SBA no instability Reps/Duration 5 reps each Comments 1. blue foam 2. tilt board (lateral pos) good form stability PT-OP-T Assessment and Plan Start: 11/30/22 21:31 Freq: Status: Active Protocol: Document 01/24/23 12:01 AMB (Rec: 01/24/23 12:36 AMB [id number]) Physical Therapy Assessment Goals Two Impairment Gait Short Term Goal (STG) Andry will ambulate over uneven terrain including grass, gravel, and curb steps without LOB. 01/10/23: goal met: very stable over grassy incline/decline/ gravel, lateral slant landscaping S/ Gigi. no trunk sway deviations at all. STG Duration 5 weeks GOAL MET 01/10/23 Detention Goal (LTG) Andry will report 0 falls since intiating physical therapy. 01/09/23: continuous recheck, no falls since started PT. 01/17/23: GOAL MET: no falls or near misses since eval LTG Duration 10 weeks GOAL MET: 01/17/23 One Impairment Fall risk Short Term Goal (STG) Andry will show reduced fall risk by scoring 23/24 or higher on the DGI. 01/17/23: GOAL MET STG Duration 5 weeks GOAL MET 01/17/23 Detention Goal (LTG) Andry will be independent with a HEP to improve his balance and LE strength. 01/10/23: STS, SLS, resisted fwd,bwd,side stepping. 01/17/23: discussed and performed during tx: f/back step, lateral step ups and mini squat BOSU dome and flat- contact rail front as needed for stability. SBA LTG Duration GOAL MET Assessment Summary Assessment Pt walks on the treadmill at the gym. Doing exercises at home. Active in the yard, is concerned about going downhill over the winter as this is generally a less active time for him. Encouraged him to keep up with his exercises and to keep using the AFO. Overall pt ready for d/c feels AFO has helped a lot and will continue with HEP independently. Physical Therapy Plan Frequency and Duration Frequency of Treatment 1x/Week Duration of treatment (weeks) 10 Plan of Care Start Date 12/01/22 Plan of Care End Date 02/09/23 Therapeutic Interventions Therapeutic Interventions Gait Training,Joint Mobilizations,Manual Therapy, Neuromuscular Re-education, Self-Care/Home Management, Therapeutic Activities, Therapeutic Exercises Discharge Physical Therapy Discharge Reasons Goals Met Next Visit Focus/Plan Next Note Type Treatment Note Next Visit Plan Create home/gym program to do self, see how many appts still need to do on own. Dynamic balance activities, multitasking. Continue uneven pods, higher steps for trail assimulation. POC:Continue with ankle strengthening, gait training, balance training
--- NOTE | 2023-03-21 09:58 | PT.OPDS ---
Current Diagnoses Foot drop, left foot (01/24/23) Other abnormalities of gait and mobility (01/24/23) History of falling (01/24/23) Visit Care Team Role Provider Type Boby Wing MD Attending Provider Physician Family Provider Primary Care Provider Referring Provider Specialty: Internal Medicine Address: [address] [place] [address], [address] [place] [address], [id number] Email: [email or web address] Visit Number Visit Number 8 Discharge Summary PT-OP-B Current Condition Start: 11/30/22 21:31 Freq: Status: Active Protocol: Document 12/01/22 14:39 AMB (Rec: 12/01/22 14:45 AMB [id number]) Current Condition History of Current Condition Onset Date chronic Current Complaints Fall history History of Current Condition Falls, about 10 falls in the last 6 months. Fell, caught his foot and fell forward when wearing shoes on hardwood floor. Feels like he's shuffling his feet. States borderline diabetes, denies neuropathy. R leg does get some pain in the morning. Notices L leg sort of slaps down. Did get a concussion in 2019 with a fall. Hiking with poles. One level house, 3 stair to enter with 2 railings. Lives with . Had back surgery in 1995 somewhere in lumbar spine. Numbness in anterior tib region after surgery. PT-OP-C Subjective Start: 11/30/22 21:31 Freq: Status: Active Protocol: Document 01/24/23 12:01 AMB (Rec: 01/24/23 12:36 AMB [id number]) OP-PT Subjective Patient Comments Patient Comments Pt doing well very active in the summer. PT-OP-D Balance Start: 11/30/22 21:31 Freq: Status: Active Protocol: Document 12/01/22 14:30 AMB (Rec: 12/03/22 10:58 AMB [id number]) Balance Tests mCTSIB mCTSIB Position 1 30 mCTSIB Position 2 30 mCTSIB Position 3 30 ankle sway mCTSIB Position 4 30 ankle sway +++ Single Limb Standing Single Limb- Right 8 Single Limb- Left 5 PT-OP-E Functional Tests Start: 11/30/22 21:31 Freq: Status: Active Protocol: Document 01/17/23 12:00 SP (Rec: 01/17/23 12:52 SP [id number]) Functional Tests Dynamic Gait Index (DGI) Score 24 DGI Impairment Rating 0% Impaired (Score 24) PT-OP-G Mobility & Gait Start: 11/30/22 21:31 Freq: Status: Active Protocol: Document 12/01/22 14:30 AMB (Rec: 12/03/22 10:58 AMB [id number]) OP Gait Assessment Comments Gait Comments Pt ambulates with good step length and speed, no AD. Does have foot drop on the left which he reports worsens with fatigue. PT-OP-M Strength Start: 11/30/22 21:31 Freq: Status: Active Protocol: Document 12/01/22 14:30 AMB (Rec: 12/03/22 10:58 AMB [id number]) Hip Strength Hip Manual Muscle Testing Right Flexion (L2) 4+ Good+ Extension (S1) 4+ Good+ Left Flexion (L2) 4 Good Extension (S1) 4 Good Knee Strength Knee Manual Muscle Testing Right Flexion (S2) 4+ Good+ Extension (L3) 4+ Good+ Left Flexion (S2) 4 Good Extension (L3) 4 Good Ankle/Foot Strength Ankle and Foot Manual Muscle Testing Right Dorsiflexion (L4) 4+ Good+ Plantarflexion (S1) 5 Normal Left Dorsiflexion (L4) 2+ Poor+ Plantarflexion (S1) 5 Normal PT-OP-T Assessment and Plan Start: 11/30/22 21:31 Freq: Status: Active Protocol: Document 01/24/23 12:01 AMB (Rec: 01/24/23 12:36 AMB [id number]) Physical Therapy Assessment Goals Two Impairment Gait Short Term Goal (STG) Andry will ambulate over uneven terrain including grass, gravel, and curb steps without LOB. 01/10/23: goal met: very stable over grassy incline/decline/ gravel, lateral slant landscaping S/ Gigi. no trunk sway deviations at all. STG Duration 5 weeks GOAL MET 01/10/23 Protection Specialist Goal (LTG) Andry will report 0 falls since intiating physical therapy. 01/09/23: continuous recheck, no falls since started PT. 01/17/23: GOAL MET: no falls or near misses since eval LTG Duration 10 weeks GOAL MET: 01/17/23 One Impairment Fall risk Short Term Goal (STG) Andry will show reduced fall risk by scoring 23/24 or higher on the DGI. 01/17/23: GOAL MET STG Duration 5 weeks GOAL MET 01/17/23 Correction Goal (LTG) Andry will be independent with a HEP to improve his balance and LE strength. 01/10/23: STS, SLS, resisted fwd,bwd,side stepping. 01/17/23: discussed and performed during tx: f/back step, lateral step ups and mini squat BOSU dome and flat- contact rail front as needed for stability. SBA LTG Duration GOAL MET Assessment Summary Assessment Pt walks on the treadmill at the gym. Doing exercises at home. Active in the yard, is concerned about going downhill over the winter as this is generally a less active time for him. Encouraged him to keep up with his exercises and to keep using the AFO. Overall pt ready for d/c feels AFO has helped a lot and will continue with HEP independently. Physical Therapy Plan Frequency and Duration Frequency of Treatment 1x/Week Duration of treatment (weeks) 10 Plan of Care Start Date 12/01/22 Plan of Care End Date 02/09/23 Therapeutic Interventions Therapeutic Interventions Gait Training,Joint Mobilizations,Manual Therapy, Neuromuscular Re-education, Self-Care/Home Management, Therapeutic Activities, Therapeutic Exercises Discharge Physical Therapy Discharge Reasons Goals Met Next Visit Focus/Plan Next Note Type Treatment Note Next Visit Plan Create home/gym program to do self, see how many appts still need to do on own. Dynamic balance activities, multitasking. Continue uneven pods, higher steps for trail assimulation. POC:Continue with ankle strengthening, gait training, balance training
== END 2023-03-21 12:36 | disposition home or self-care (01) ==
LOC: PHYS 12:00
PROVIDERS: Absent Provider Student in an Organized Health Care Education/Training Program; Family Provider Student in an Organized Health Care Education/Training Program; PCP Student in an Organized Health Care Education/Training Program; Referring Provider Student in an Organized Health Care Education/Training Program; Visit Provider Student in an Organized Health Care Education/Training Program
DX: R26.89 Other abnormalities of gait and mobility (principal); M21.372 Foot drop, left foot; Z91.81 History of falling
CPT/HCPCS: 97110; 97112; 97116; 97161; 97535

== ENCOUNTER → 2023-08-27 10:09 | Outpatient (CLI) | payer MEDICARE, OTHER, SELFPAY ==
[2023-08-27 13:00] LABS: Hemoglobin A1C% w Est Avg Glu 6.2 % (4.0-6.0)
[2023-08-27 13:13] LABS: Alanine Aminotransferase 43 IU/L (<50); Albumin 4.2 g/dL (3.5-5.0); Albumin Globulin Ratio 1.3 (1.0-2.8); Alkaline Phosphatase 81 U/L (38-126); Aspartate Aminotransferase 52 IU/L (17-59); BUN Creatinine Ratio 14.6 (6-22); Bilirubin Total 1.1 mg/dL (0.2-1.3); Blood Urea Nitrogen 14 mg/dL (9-20); Calcium 9.8 mg/dL (8.4-10.2); Carbon Dioxide 30 mmol/L (22-32); Chloride 102 mmol/L (98-107); Cholesterol 122 mg/dL (140-199); Estimated Glomerular Filt Rate > 60 mL/min (>60); Globulin 3.3 g/dL (1.7-4.1); Glucose 104 mg/dL (80-110); HDL Cholesterol 38 mg/dL (40-60); HEMOLYSIS < 15 (0-50); LDL Cholesterol Calculated 67 mg/dL (<100); Potassium 4.4 mmol/L (3.4-5.1); Sodium 138 mmol/L (137-145); Total Protein 7.5 g/dL (6.3-8.2); Triglycerides 83 mg/dL (35-150)
[2023-08-27 13:42] LABS: TSH w/ Reflex to FT4 2.03 uIU/mL (0.47-4.68)
[2023-08-28 20:06] LABS: Hep C Virus Ab w/Reflex Quant NEGATIVE s/c (NEGATIVE)
== END ==
LOC: LAB 10:11
PROVIDERS: Family Provider Student in an Organized Health Care Education/Training Program; PCP Family Medicine; Referring Provider Family Medicine; Visit Provider Family Medicine
DX: I10 Essential (primary) hypertension (principal); E03.9 Hypothyroidism, unspecified; I25.10 Atherosclerotic heart disease of native coronary artery without angina pectoris
CPT/HCPCS: 36415; 80053; 80061; 83036; 84443; 86803

== ENCOUNTER → 2024-02-22 10:14 | Outpatient (CLI) | payer MEDICARE, OTHER, SELFPAY ==
[2024-02-22 11:26] LABS: Hemoglobin A1C% w Est Avg Glu 6.2 % (4.0-6.0)
[2024-02-22 11:54] LABS: BUN Creatinine Ratio 19.6 (6-22); Blood Urea Nitrogen 21 mg/dL (9-20); Calcium 9.4 mg/dL (8.4-10.2); Carbon Dioxide 29 mmol/L (22-32); Chloride 108 mmol/L (98-107); Estimated Glomerular Filt Rate > 60 mL/min (>60); Glucose 90 mg/dL (80-110); HEMOLYSIS < 15 (0-50); Potassium 4.8 mmol/L (3.4-5.1); Sodium 139 mmol/L (137-145)
== END ==
LOC: LAB 10:16
PROVIDERS: Family Provider Student in an Organized Health Care Education/Training Program; PCP Family Medicine; Referring Provider Family Medicine; Visit Provider Family Medicine
DX: I10 Essential (primary) hypertension (principal); R73.01 Impaired fasting glucose; I25.10 Atherosclerotic heart disease of native coronary artery without angina pectoris
CPT/HCPCS: 36415; 80048; 83036

== ENCOUNTER → 2024-08-25 09:38 | Outpatient (CLI) | payer MEDICARE, OTHER, SELFPAY ==
[2024-08-25 11:15] LABS: Hemoglobin A1C% w Est Avg Glu 6.1 % (4.0-6.0)
[2024-08-25 11:40] LABS: Alanine Aminotransferase 47 IU/L (<50); Albumin 3.9 g/dL (3.5-5.0); Albumin Globulin Ratio 1.4 (1.0-2.8); Alkaline Phosphatase 71 U/L (38-126); Aspartate Aminotransferase 56 IU/L (17-59); BUN Creatinine Ratio 17.2 (6-22); Bilirubin Total 1.2 mg/dL (0.2-1.3); Blood Urea Nitrogen 20 mg/dL (9-20); Calcium 9.3 mg/dL (8.4-10.2); Carbon Dioxide 28 mmol/L (22-32); Chloride 106 mmol/L (98-107); Cholesterol 111 mg/dL (140-199); Estimated Glomerular Filt Rate > 60 mL/min (>60); Globulin 2.8 g/dL (1.7-4.1); Glucose 103 mg/dL (80-110); HDL Cholesterol 41 mg/dL (40-60); HEMOLYSIS 18 (0-50); LDL Cholesterol Calculated 56 mg/dL (<100); Potassium 4.6 mmol/L (3.4-5.1); Sodium 138 mmol/L (137-145); Total Protein 6.7 g/dL (6.3-8.2); Triglycerides 69 mg/dL (35-150)
[2024-08-25 12:07] LABS: TSH w/ Reflex to FT4 2.14 uIU/mL (0.47-4.68)
== END ==
LOC: LAB 09:39
PROVIDERS: Family Provider Student in an Organized Health Care Education/Training Program; PCP Family Medicine; Referring Provider Family Medicine; Visit Provider Family Medicine
DX: R73.01 Impaired fasting glucose (principal); I25.10 Atherosclerotic heart disease of native coronary artery without angina pectoris; E03.9 Hypothyroidism, unspecified; Z00.00 Encounter for general adult medical examination without abnormal findings; I10 Essential (primary) hypertension
CPT/HCPCS: 36415; 80053; 80061; 83036; 84443

== ENCOUNTER 2024-10-30 11:30 | Outpatient (RCR) | payer MEDICARE, OTHER, SELFPAY ==
--- NOTE | 2024-09-19 14:21 | PT.OIE ---
Current Diagnoses Lumbago with sciatica, unspecified side (09/19/24) Pain in leg, unspecified (09/19/24) Past Medical History (Last Updated 08/25/24 @ 09:31 by Rohan Mckinney DO) Abscess of leg Acquired hypothyroidism (01/18/17) Benign prostatic hyperplasia (01/18/17) BPH (benign prostatic hyperplasia) CAD (coronary artery disease) Coronary artery disease Encounter for subsequent annual wellness visit (AWV) in Medicare patient Hyperlipidemia, unspecified Hypertension Hypothyroidism IFG (impaired fasting glucose) Osteoarthritis Past Surgical History (Last Updated 10/24/20 @ 14:53 by Boby Wing MD) History of back surgery History of open reduction and internal fixation (ORIF) procedure (~03/2014) Hx of heart artery stent (02/2017) Hx of surgical procedure (1989) Visit Care Team Role Provider Type Rohan Mckinney DO Attending Provider Physician Family Provider Primary Care Provider Referring Provider Specialty: [facility] Address: [address] [place] [address], [address], [facility] Email: [email or web address] Physical Therapy Initial Evaluation PT-OP-A Visit Information Start: 09/19/24 16:47 Freq: Status: Active Protocol: Document 09/19/24 11:30 DCW (Rec: 09/19/24 16:51 DCW [id number]) Out-Patient Physical Therapy Visit Information Visit Information Visit Type Initial Evaluation Visit Start Time 11:30 Visit Stop Time 12:15 Visit Number 1 Number of LAND DEGRADATION ANALYST Visits 0 Evaluation Information Evaluation Date 09/19/24 PT-OP-B Current Condition Start: 09/19/24 16:47 Freq: Status: Active Protocol: Document 09/19/24 11:30 DCW (Rec: 09/22/24 14:20 DCW [id number]) Current Condition History of Current Condition Onset Date One year history Current Complaints Bilateral upper leg pain History of Current Condition Pt is an 78 year old male presenting with a one year history of upper leg/thigh pain bilaterally. Pt reports he feels fine sleeping or sitting, but when standing for a length of time, especially if he is carrying weight, like a grocery bag, it causes a fairly significant increase in pain. Pt reports he can work out at the gym without any pain. Pain goes into both legs , but does not go past the knees. Admits he is no longer able to go hiking, due to both the distance and the added weight causing pain. Does have a malcolm in his left femur following a fracture ~5 years ago. 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 Pt notes that when he has his leg pain, his leg, especially the left, feel weak and like they will give out, and has, in fact, experienced two falls over the past year. PT-OP-C Subjective Start: 09/19/24 16:47 Freq: Status: Active Protocol: Document 09/19/24 11:30 DCW (Rec: 09/19/24 16:51 DCW [id number]) OP-PT Subjective Patient Comments Patient Comments I got leg pain, but I'm about to be 79, so thismight just be a part of it. Patient Reported Progress Same Patient Questionnaires Lower Extremity Functional Scale LEFS Score 44/80 = 55% LEFS Impairment 40 to 59% Impaired (Score 32- 47) PT-OP-F Manual Assessment Start: 09/19/24 16:47 Freq: Status: Active Protocol: Document 09/19/24 11:30 DCW (Rec: 09/22/24 12:52 DCW [id number]) Manual Assessments Soft Tissue Assessment Soft Tissue Mobility Assessment Mild increased tone in bilateral musculature along lumbar spine, no notable tone or tenderness in upper legs. PT-OP-L Special Tests Start: 09/19/24 16:47 Freq: Status: Active Protocol: Document 09/19/24 11:30 DCW (Rec: 09/22/24 12:52 DCW [id number]) Special Tests Lumbar Spine Special Tests Vertical Spine Loading Test Results Negative Straight Leg Raise Test Results B hamstring tightness 50? Slump Test Results B hamstring tightness Manual Traction Test Results Mild improvement A-P Shearing Test Results Negative PT-OP-M Strength Start: 09/19/24 16:47 Freq: Status: Active Protocol: Document 09/19/24 11:30 DCW (Rec: 09/22/24 12:52 DCW [id number]) Hip Strength Hip Manual Muscle Testing Right Flexion (L2) 4+ Good+ Abduction 4+ Good+ Adduction 4+ Good+ External Rotation 5 Normal Internal Rotation 5 Normal Left Flexion (L2) 4+ Good+ Abduction 4+ Good+ Adduction 4+ Good+ External Rotation 5 Normal Internal Rotation 5 Normal Knee Strength Knee Manual Muscle Testing Right Flexion (S2) 4+ Good+ Extension (L3) 4+ Good+ Left Flexion (S2) 4- Good- Extension (L3) 4 Good Comments AFO on Left leg d/t footdrop PT-OP-T Assessment and Plan Start: 09/19/24 16:47 Freq: Status: Active Protocol: Document 09/19/24 11:30 DCW (Rec: 09/22/24 14:20 DCW [id number]) Physical Therapy Assessment Rehab Potential Rehabilitation Potential Fair Evaluation Complexity Number of Personal Factors/Comorbidities 3 or More Number of Body Systems Impaired 4 or More Clinical Presentation at Evaluation Unstable Impairments Impairments Activity Tolerance,Functional Activities,Functional Mobility ,Gait,Strength Goals Two Impairment Pt unable to carry groceries into his home without increased pain Mcc Goal (LTG) Pt to demonstrate ability to carry 20 pounds or more for 100' without increased pain in order to improve ability to independently go for groceries safely. LTG Duration 11/17/34 One Impairment Pt does not have an appropriate home exercise program Short Term Goal (STG) Pt to be independent and complaint with an appropriate HEP STG Duration 10/17/24 Assessment Summary Assessment Pt testing largely negative today, although pt clearly has left LE weakness, although this has been unchanged for ~ 20 years since undergoing back surgery in the 90s. Pt does not pain is worse when up moving or carrying things more , but feels pain is exclusively in his legs. Due to the bilateral and seemingly radicular nature of his pain, and the history of lumbar surgery, pain potentially coming from his low back. May benefit from skilled therapeutic intervention focusing on leg and core strengthening, lifting mechanics, and functional mobility. If pt does not progress as expected, may benefit from further advanced imaging in the future. Physical Therapy Plan Frequency and Duration Frequency of Treatment 2x/Week Plan of Care Start Date 09/19/24 Plan of Care End Date 11/17/24 Therapeutic Interventions Therapeutic Interventions Gait Training,Home Exercise Program,Joint Mobilizations, Manual Therapy,Neuromuscular Re-education,Patient/Caregiver Education,Self-Care/Home Management,Soft Tissue Mobilization,Therapeutic Activities,Therapeutic Exercises Modalities Cold Pack/Ice Massage,Hot Packs Next Visit Focus/Plan Next Note Type Treatment Note Next Visit Plan Core/hip strengthening, body mechanics, lifting
--- NOTE | 2024-09-19 14:22 | PT.OPPOC ---
Physical, Occupational & Speech Therapy At [facility] Current Diagnoses Lumbago with sciatica, unspecified side (09/19/24) Pain in leg, unspecified (09/19/24) Visit Care Team Role Provider Type Rohan Mckinney DO Attending Provider Physician Family Provider Primary Care Provider Referring Provider Specialty: Family Practice Address: [address] [place] [address], [address], [facility] Email: [email or web address] Plan Of Care PT-OP-B Current Condition Start: 09/19/24 16:47 Freq: Status: Active Protocol: Document 09/19/24 11:30 DCW (Rec: 09/22/24 14:20 DCW [id number]) Current Condition History of Current Condition Onset Date One year history Current Complaints Bilateral upper leg pain History of Current Condition Pt is an 78 year old male presenting with a one year history of upper leg/thigh pain bilaterally. Pt reports he feels fine sleeping or sitting, but when standing for a length of time, especially if he is carrying weight, like a grocery bag, it causes a fairly significant increase in pain. Pt reports he can work out at the gym without any pain. Pain goes into both legs , but does not go past the knees. Admits he is no longer able to go hiking, due to both the distance and the added weight causing pain. Does have a malcolm in his left femur following a fracture ~5 years ago. 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 Pt notes that when he has his leg pain, his leg, especially the left, feel weak and like they will give out, and has, in fact, experienced two falls over the past year. PT-OP-T Assessment and Plan Start: 09/19/24 16:47 Freq: Status: Active Protocol: Document 09/19/24 11:30 DCW (Rec: 09/22/24 14:20 DCW [id number]) Physical Therapy Assessment Rehab Potential Rehabilitation Potential Fair Evaluation Complexity Number of Personal Factors/Comorbidities 3 or More Number of Body Systems Impaired 4 or More Clinical Presentation at Evaluation Unstable Impairments Impairments Activity Tolerance,Functional Activities,Functional Mobility ,Gait,Strength Goals Two Impairment Pt unable to carry groceries into his home without increased pain Clinical Tech Goal (LTG) Pt to demonstrate ability to carry 20 pounds or more for 100' without increased pain in order to improve ability to independently go for groceries safely. LTG Duration 11/17/34 One Impairment Pt does not have an appropriate home exercise program Short Term Goal (STG) Pt to be independent and complaint with an appropriate HEP STG Duration 10/17/24 Assessment Summary Assessment Pt testing largely negative today, although pt clearly has left LE weakness, although this has been unchanged for ~ 20 years since undergoing back surgery in the s. Pt does not pain is worse when up moving or carrying things more , but feels pain is exclusively in his legs. Due to the bilateral and seemingly radicular nature of his pain, and the history of lumbar surgery, pain potentially coming from his low back. May benefit from skilled therapeutic intervention focusing on leg and core strengthening, lifting mechanics, and functional mobility. If pt does not progress as expected, may benefit from further advanced imaging in the future. Physical Therapy Plan Frequency and Duration Frequency of Treatment 2x/Week Plan of Care Start Date 09/19/24 Plan of Care End Date 11/17/24 Therapeutic Interventions Therapeutic Interventions Gait Training,Home Exercise Program,Joint Mobilizations, Manual Therapy,Neuromuscular Re-education,Patient/Caregiver Education,Self-Care/Home Management,Soft Tissue Mobilization,Therapeutic Activities,Therapeutic Exercises Modalities Cold Pack/Ice Massage,Hot Packs Next Visit Focus/Plan Next Note Type Treatment Note Next Visit Plan Core/hip strengthening, body mechanics, lifting Plan of Care Dates Plan of Care Start Date 09/19/24 Plan of Care End Date 11/17/24 Electronically Signed by: Zen Winston, PT 09/22/24 8745 If you are in agreement with this Plan of Care, please return a signed and dated copy. I have reviewed this Plan of Care and certify that the skilled therapy services above are required to meet the patient?s needs. Physician Signature Date Printed Name and Credentials Clinical Instructor Signature Printed Name and Credentials
--- NOTE | 2024-09-23 12:16 | PT.OTN ---
Current Diagnoses Lumbago with sciatica, unspecified side (09/23/24) Pain in leg, unspecified (09/23/24) Physical Therapy Treatment Note PT-OP-A Visit Information Start: 09/19/24 16:47 Freq: Status: Active Protocol: Document 09/23/24 11:30 DCW (Rec: 09/23/24 12:16 DCW [id number]) Out-Patient Physical Therapy Visit Information Visit Information Visit Type Treatment Note Visit Start Time 11:30 Visit Stop Time 12:15 Visit Number 2 Number of SHOP FITTER Visits 0 Evaluation Information Evaluation Date 09/19/24 PT-OP-B Current Condition Start: 09/19/24 16:47 Freq: Status: Active Protocol: Document 09/19/24 11:30 DCW (Rec: 09/22/24 14:20 DCW [id number]) Current Condition History of Current Condition Onset Date One year history Current Complaints Bilateral upper leg pain History of Current Condition Pt is an 78 year old male presenting with a one year history of upper leg/thigh pain bilaterally. Pt reports he feels fine sleeping or sitting, but when standing for a length of time, especially if he is carrying weight, like a grocery bag, it causes a fairly significant increase in pain. Pt reports he can work out at the gym without any pain. Pain goes into both legs , but does not go past the knees. Admits he is no longer able to go hiking, due to both the distance and the added weight causing pain. Does have a malcolm in his left femur following a fracture ~5 years ago. 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 Pt notes that when he has his leg pain, his leg, especially the left, feel weak and like they will give out, and has, in fact, experienced two falls over the past year. PT-OP-C Subjective Start: 09/19/24 16:47 Freq: Status: Active Protocol: Document 09/23/24 11:30 DCW (Rec: 09/23/24 12:16 DCW [id number]) OP-PT Subjective Patient Comments Patient Comments Sitting or laying, it's fine. Really only standing, especially if I'm carrying something. PT-OP-F Manual Assessment Start: 09/19/24 16:47 Freq: Status: Active Protocol: Document 09/19/24 11:30 DCW (Rec: 09/22/24 12:52 DCW [id number]) Manual Assessments Soft Tissue Assessment Soft Tissue Mobility Assessment Mild increased tone in bilateral musculature along lumbar spine, no notable tone or tenderness in upper legs. PT-OP-L Special Tests Start: 09/19/24 16:47 Freq: Status: Active Protocol: Document 09/19/24 11:30 DCW (Rec: 09/22/24 12:52 DCW [id number]) Special Tests Lumbar Spine Special Tests Vertical Spine Loading Test Results Negative Straight Leg Raise Test Results B hamstring tightness 50? Slump Test Results B hamstring tightness Manual Traction Test Results Mild improvement A-P Shearing Test Results Negative PT-OP-M Strength Start: 09/19/24 16:47 Freq: Status: Active Protocol: Document 09/19/24 11:30 DCW (Rec: 09/22/24 12:52 DCW [id number]) Hip Strength Hip Manual Muscle Testing Right Flexion (L2) 4+ Good+ Abduction 4+ Good+ Adduction 4+ Good+ External Rotation 5 Normal Internal Rotation 5 Normal Left Flexion (L2) 4+ Good+ Abduction 4+ Good+ Adduction 4+ Good+ External Rotation 5 Normal Internal Rotation 5 Normal Knee Strength Knee Manual Muscle Testing Right Flexion (S2) 4+ Good+ Extension (L3) 4+ Good+ Left Flexion (S2) 4- Good- Extension (L3) 4 Good Comments AFO on Left leg d/t footdrop PT-OP-Q Treatments Start: 09/19/24 16:47 Freq: Status: Active Protocol: Document 09/23/24 11:30 DCW (Rec: 09/23/24 12:16 DCW [id number]) Gym Equipment Shuttle Recovery Unilateral Squats Resistance 37#->50# Shuttle Recovery Platform Stable Bilateral Squats Resistance 75# Shuttle Recovery Platform Stable Therapeutic Ball LTR Exercise Details LTR Ball Size/Color Red - 55 cm Body Position Supine Pelvic Circles Exercise Details Pelvic tilts/circles Ball Size/Color Green - 65 cm Body Position Sitting Therapeutic Exercises Supine Exercises SLR Supine Exercise Name PPT /c alternating SLR Marching Supine Exercise Name PPT /c Marching PPT Supine Exercise Name PPT /c TrA contraction Standing Exercises Pallof Press Standing Exercise Name Pallof Press Side bilateral Resistance Blue Other Exercises Resisted Ambulation Other Exercise Name Resisted side-stepping Resistance Green loop Equipment Used // bars PT-OP-T Assessment and Plan Start: 09/19/24 16:47 Freq: Status: Active Protocol: Document 09/23/24 11:30 DCW (Rec: 09/23/24 12:16 DCW [id number]) Physical Therapy Assessment Assessment Summary Assessment Pt did well with TherEx today, provided handout for performing PPT/core strengthening for HEP. Spend some time with automobile body repairer and lifting technique next visit. Physical Therapy Plan Frequency and Duration Frequency of Treatment 2x/Week Plan of Care Start Date 09/19/24 Plan of Care End Date 11/17/24 Therapeutic Interventions Therapeutic Interventions Gait Training,Home Exercise Program,Joint Mobilizations, Manual Therapy,Neuromuscular Re-education,Patient/Caregiver Education,Self-Care/Home Management,Soft Tissue Mobilization,Therapeutic Activities,Therapeutic Exercises Modalities Cold Pack/Ice Massage,Hot Packs Next Visit Focus/Plan Next Note Type Treatment Note Next Visit Plan Core/hip strengthening, body mechanics, lifting
--- NOTE | 2024-09-30 12:17 | PT.OTN ---
Current Diagnoses Lumbago with sciatica, unspecified side (09/30/24) Pain in leg, unspecified (09/30/24) Physical Therapy Treatment Note PT-OP-A Visit Information Start: 09/19/24 16:47 Freq: Status: Active Protocol: Document 09/30/24 11:29 SP (Rec: 09/30/24 12:28 SP [id number]) Out-Patient Physical Therapy Visit Information Visit Information Visit Type Treatment Note Visit Start Time 11:31 Visit Stop Time 12:17 Visit Number 3 Number of MOLDING PRESS OPERATOR Visits 1 Evaluation Information Evaluation Date 09/19/24 PT-OP-B Current Condition Start: 09/19/24 16:47 Freq: Status: Active Protocol: Document 09/19/24 11:30 DCW (Rec: 09/22/24 14:20 DCW [id number]) Current Condition History of Current Condition Onset Date One year history Current Complaints Bilateral upper leg pain History of Current Condition Pt is an 78 year old male presenting with a one year history of upper leg/thigh pain bilaterally. Pt reports he feels fine sleeping or sitting, but when standing for a length of time, especially if he is carrying weight, like a grocery bag, it causes a fairly significant increase in pain. Pt reports he can work out at the gym without any pain. Pain goes into both legs , but does not go past the knees. Admits he is no longer able to go hiking, due to both the distance and the added weight causing pain. Does have a malcolm in his left femur following a fracture ~5 years ago. 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 Pt notes that when he has his leg pain, his leg, especially the left, feel weak and like they will give out, and has, in fact, experienced two falls over the past year. PT-OP-C Subjective Start: 09/19/24 16:47 Freq: Status: Active Protocol: Document 09/30/24 11:29 SP (Rec: 09/30/24 12:28 SP [id number]) OP-PT Subjective Patient Comments Patient Comments Pt reports justing getting started and no change yet. Pain still in upper BLE, more lay and sitting and carrying items of weight. PT-OP-F Manual Assessment Start: 09/19/24 16:47 Freq: Status: Active Protocol: Document 09/19/24 11:30 DCW (Rec: 09/22/24 12:52 DCW [id number]) Manual Assessments Soft Tissue Assessment Soft Tissue Mobility Assessment Mild increased tone in bilateral musculature along lumbar spine, no notable tone or tenderness in upper legs. PT-OP-L Special Tests Start: 09/19/24 16:47 Freq: Status: Active Protocol: Document 09/19/24 11:30 DCW (Rec: 09/22/24 12:52 DCW [id number]) Special Tests Lumbar Spine Special Tests Vertical Spine Loading Test Results Negative Straight Leg Raise Test Results B hamstring tightness 50? Slump Test Results B hamstring tightness Manual Traction Test Results Mild improvement A-P Shearing Test Results Negative PT-OP-M Strength Start: 09/19/24 16:47 Freq: Status: Active Protocol: Document 09/19/24 11:30 DCW (Rec: 09/22/24 12:52 DCW [id number]) Hip Strength Hip Manual Muscle Testing Right Flexion (L2) 4+ Good+ Abduction 4+ Good+ Adduction 4+ Good+ External Rotation 5 Normal Internal Rotation 5 Normal Left Flexion (L2) 4+ Good+ Abduction 4+ Good+ Adduction 4+ Good+ External Rotation 5 Normal Internal Rotation 5 Normal Knee Strength Knee Manual Muscle Testing Right Flexion (S2) 4+ Good+ Extension (L3) 4+ Good+ Left Flexion (S2) 4- Good- Extension (L3) 4 Good Comments AFO on Left leg d/t footdrop PT-OP-Q Treatments Start: 09/19/24 16:47 Freq: Status: Active Protocol: Document 09/30/24 11:29 SP (Rec: 09/30/24 12:28 SP [id number]) Gym Equipment Shuttle Recovery Unilateral Squats Details cued heel press/glut drive, flex/ext slower pacing, light touch block Resistance 50# 2 navy bands Shuttle Recovery Platform Stable Reps/Time 15 reps each Bilateral Squats Details cued light touch block on maching, slow pacing flex/ext BLEs Resistance 75# 3 navy bands Shuttle Recovery Platform Stable Reps/Time x15 reps Therapeutic Ball LTR Exercise Details LTR Ball Size/Color Red - 55 cm Body Position Supine Reps/Duration 15 reps Comments hold 2 reps 3 breath for QL- good stretch- gave HO with feet on table. Pelvic Circles Exercise Details Pelvic tilts/circles Ball Size/Color Green - 65 cm Body Position Sitting Comments f/b/lateral, circles tactile cues knees still, upper trunk still, LS mobility - improved. Ed can perform sit front chair before stand up warm up. Therapeutic Exercises Supine Exercises LTR Supine Exercise Name added to HEP /c HO Reps/Minutes 10 x reps STS, then 3 deep breathes end feel Comments instructed for am warm up LS- good response SLR Supine Exercise Name PPT /c alternating SLR Reps/Minutes 10 reps Comments cued TA/PPT, lift lower mid opp LE robbins Marching Supine Exercise Name PPT /c Marching Side bilateral Reps/Minutes x20 reps alternating Comments Cued lightly touch/land on table PPT Supine Exercise Name PPT /c TrA contraction Reps/Minutes 3 SH /c breath, 5 reps Comments warm up PPT performance Sidelying Exercises open book Sidelying Exercise Name added to HEP /c HO Side bilateral Reps/Minutes 5 eps ,1 rep end feel pec stretch 3 breath hold Comments am warm up in am, TS mobility Sitting Exercises HS stretch Sitting Exercise Name added to HEP /c HO Side bilateral Reps/Minutes 30 SH x2 Comments cued chest lift, hip hinge for gentle streth HS, not push into pain Self-Care/Home Management Treatment Education Patient Education Body Mechanics,Home Exercise Program,Posture Other Education Ed use pillows under thighs ( didn't perform during tx), added open book, LTR and HS stretch for lumbar and hip flexibility progression. Showed flexed postural image with lbs gravity weight contributer to back pain, mindfulness more upright corrections. Eg head like holding bowling ball out front , alot weight- comparision PT-OP-T Assessment and Plan Start: 09/19/24 16:47 Freq: Status: Active Protocol: Document 09/30/24 11:29 SP (Rec: 09/30/24 12:28 SP [id number]) Physical Therapy Assessment Goals Two Impairment Pt unable to carry groceries into his home without increased pain Olive Pitter Goal (LTG) Pt to demonstrate ability to carry 20 pounds or more for 100' without increased pain in order to improve ability to independently go for groceries safely. LTG Duration 11/17/34 One Impairment Pt does not have an appropriate home exercise program Short Term Goal (STG) Pt to be independent and complaint with an appropriate HEP STG Duration 10/17/24 Assessment Summary Assessment Pt reports decreased tension on spine and hips post stretching, core HEP review. Added LTR, open book and HS stretching to HEP for increased hip and LS mobility with good feedback response. Provided HOs and image for postural awareness gravity has on spine for self awareness corections. Cued during core HEP, light touch LE to table for core and hip strengthening support with ed carryover walking eccentric LE advancement heel strike. Physical Therapy Plan Frequency and Duration Frequency of Treatment 2x/Week Plan of Care Start Date 09/19/24 Plan of Care End Date 11/17/24 Therapeutic Interventions Therapeutic Interventions Gait Training,Home Exercise Program,Joint Mobilizations, Manual Therapy,Neuromuscular Re-education,Patient/Caregiver Education,Self-Care/Home Management,Soft Tissue Mobilization,Therapeutic Activities,Therapeutic Exercises Modalities Cold Pack/Ice Massage,Hot Packs Next Visit Focus/Plan Next Note Type Treatment Note Next Visit Plan Review HEP as needed. POC: Core/hip strengthening, body mechanics, lifting
--- NOTE | 2024-10-02 12:12 | PT.OTN ---
Current Diagnoses Lumbago with sciatica, unspecified side (10/02/24) Pain in leg, unspecified (10/02/24) Physical Therapy Treatment Note PT-OP-A Visit Information Start: 09/19/24 16:47 Freq: Status: Active Protocol: Document 10/02/24 11:30 DCW (Rec: 10/02/24 12:12 DCW [id number]) Out-Patient Physical Therapy Visit Information Visit Information Visit Type Treatment Note Visit Start Time 11:30 Visit Stop Time 12:15 Visit Number 4 Number of COMPUTER SCIENCE INSTRUCTOR Visits 0 Evaluation Information Evaluation Date 09/19/24 PT-OP-B Current Condition Start: 09/19/24 16:47 Freq: Status: Active Protocol: Document 09/19/24 11:30 DCW (Rec: 09/22/24 14:20 DCW [id number]) Current Condition History of Current Condition Onset Date One year history Current Complaints Bilateral upper leg pain History of Current Condition Pt is an 78 year old male presenting with a one year history of upper leg/thigh pain bilaterally. Pt reports he feels fine sleeping or sitting, but when standing for a length of time, especially if he is carrying weight, like a grocery bag, it causes a fairly significant increase in pain. Pt reports he can work out at the gym without any pain. Pain goes into both legs , but does not go past the knees. Admits he is no longer able to go hiking, due to both the distance and the added weight causing pain. Does have a malcolm in his left femur following a fracture ~5 years ago. 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 Pt notes that when he has his leg pain, his leg, especially the left, feel weak and like they will give out, and has, in fact, experienced two falls over the past year. PT-OP-C Subjective Start: 09/19/24 16:47 Freq: Status: Active Protocol: Document 10/02/24 11:30 DCW (Rec: 10/02/24 12:12 DCW [id number]) OP-PT Subjective Patient Comments Patient Comments Since last visit, I've been paying more attention to my posture, and everyone's posture, and it just seems like everyone I see is hunched forward with their head down. PT-OP-F Manual Assessment Start: 09/19/24 16:47 Freq: Status: Active Protocol: Document 09/19/24 11:30 DCW (Rec: 09/22/24 12:52 DCW [id number]) Manual Assessments Soft Tissue Assessment Soft Tissue Mobility Assessment Mild increased tone in bilateral musculature along lumbar spine, no notable tone or tenderness in upper legs. PT-OP-L Special Tests Start: 09/19/24 16:47 Freq: Status: Active Protocol: Document 09/19/24 11:30 DCW (Rec: 09/22/24 12:52 DCW [id number]) Special Tests Lumbar Spine Special Tests Vertical Spine Loading Test Results Negative Straight Leg Raise Test Results B hamstring tightness 50? Slump Test Results B hamstring tightness Manual Traction Test Results Mild improvement A-P Shearing Test Results Negative PT-OP-M Strength Start: 09/19/24 16:47 Freq: Status: Active Protocol: Document 09/19/24 11:30 DCW (Rec: 09/22/24 12:52 DCW [id number]) Hip Strength Hip Manual Muscle Testing Right Flexion (L2) 4+ Good+ Abduction 4+ Good+ Adduction 4+ Good+ External Rotation 5 Normal Internal Rotation 5 Normal Left Flexion (L2) 4+ Good+ Abduction 4+ Good+ Adduction 4+ Good+ External Rotation 5 Normal Internal Rotation 5 Normal Knee Strength Knee Manual Muscle Testing Right Flexion (S2) 4+ Good+ Extension (L3) 4+ Good+ Left Flexion (S2) 4- Good- Extension (L3) 4 Good Comments AFO on Left leg d/t footdrop PT-OP-Q Treatments Start: 09/19/24 16:47 Freq: Status: Active Protocol: Document 10/02/24 11:30 DCW (Rec: 10/02/24 12:12 DCW [id number]) Gym Equipment Shuttle Recovery Unilateral Squats Resistance 50# Shuttle Recovery Platform Stable Bilateral Squats Resistance 75# Shuttle Recovery Platform Stable Therapeutic Ball Trunk Rotation Exercise Details Resisted Trunk Rotation Ball Size/Color Green - 55 cm Lv 3 T-band Body Position Sitting Therapeutic Exercises Standing Exercises Hip Extension Standing Exercise Name Hip Extension Side bilateral Equipment Used Green loop Hip Hiking Standing Exercise Name Hip Hiking Side bilateral Equipment Used 4 step Comments VCs for technique Other Exercises Resisted Ambulation Other Exercise Name Resisted side-stepping Resistance Green loop Equipment Used // bars PT-OP-T Assessment and Plan Start: 09/19/24 16:47 Freq: Status: Active Protocol: Document 10/02/24 11:30 DCW (Rec: 10/02/24 12:12 DCW [id number]) Physical Therapy Assessment Impairments Impairments Activity Tolerance,Functional Activities,Functional Mobility ,Gait,Strength Goals Two Impairment Pt unable to carry groceries into his home without increased pain Employee Benefits Director Goal (LTG) Pt to demonstrate ability to carry 20 pounds or more for 100' without increased pain in order to improve ability to independently go for groceries safely. LTG Duration 11/17/34 One Impairment Pt does not have an appropriate home exercise program Short Term Goal (STG) Pt to be independent and complaint with an appropriate HEP STG Duration 10/17/24 Assessment Summary Assessment Good response to treatment, pt reports he is feeling good about everything, continue current HEP. Continue to focus on LE and core strengthening. Physical Therapy Plan Frequency and Duration Frequency of Treatment 2x/Week Plan of Care Start Date 09/19/24 Plan of Care End Date 11/17/24 Therapeutic Interventions Therapeutic Interventions Gait Training,Home Exercise Program,Joint Mobilizations, Manual Therapy,Neuromuscular Re-education,Patient/Caregiver Education,Self-Care/Home Management,Soft Tissue Mobilization,Therapeutic Activities,Therapeutic Exercises Modalities Cold Pack/Ice Massage,Hot Packs Next Visit Focus/Plan Next Note Type Treatment Note Next Visit Plan Review HEP as needed. POC: Core/hip strengthening, body mechanics, lifting
--- NOTE | 2024-10-08 11:30 | PT.OTN ---
Current Diagnoses Lumbago with sciatica, unspecified side (10/08/24) Pain in leg, unspecified (10/08/24) Physical Therapy Treatment Note PT-OP-A Visit Information Start: 09/19/24 16:47 Freq: Status: Active Protocol: Document 10/08/24 10:45 DCW (Rec: 10/08/24 11:30 DCW [id number]) Out-Patient Physical Therapy Visit Information Visit Information Visit Type Treatment Note Visit Start Time 10:45 Visit Stop Time 11:30 Visit Number 5 Number of CASHIER WRAPPER Visits 0 Evaluation Information Evaluation Date 09/19/24 PT-OP-B Current Condition Start: 09/19/24 16:47 Freq: Status: Active Protocol: Document 09/19/24 11:30 DCW (Rec: 09/22/24 14:20 DCW [id number]) Current Condition History of Current Condition Onset Date One year history Current Complaints Bilateral upper leg pain History of Current Condition Pt is an 78 year old male presenting with a one year history of upper leg/thigh pain bilaterally. Pt reports he feels fine sleeping or sitting, but when standing for a length of time, especially if he is carrying weight, like a grocery bag, it causes a fairly significant increase in pain. Pt reports he can work out at the gym without any pain. Pain goes into both legs , but does not go past the knees. Admits he is no longer able to go hiking, due to both the distance and the added weight causing pain. Does have a malcolm in his left femur following a fracture ~5 years ago. 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 Pt notes that when he has his leg pain, his leg, especially the left, feel weak and like they will give out, and has, in fact, experienced two falls over the past year. PT-OP-C Subjective Start: 09/19/24 16:47 Freq: Status: Active Protocol: Document 10/08/24 10:45 DCW (Rec: 10/08/24 11:30 DCW [id number]) OP-PT Subjective Patient Comments Patient Comments Pt feeling like the hamstring stretches have been really beneficial PT-OP-F Manual Assessment Start: 09/19/24 16:47 Freq: Status: Active Protocol: Document 09/19/24 11:30 DCW (Rec: 09/22/24 12:52 DCW [id number]) Manual Assessments Soft Tissue Assessment Soft Tissue Mobility Assessment Mild increased tone in bilateral musculature along lumbar spine, no notable tone or tenderness in upper legs. PT-OP-L Special Tests Start: 09/19/24 16:47 Freq: Status: Active Protocol: Document 09/19/24 11:30 DCW (Rec: 09/22/24 12:52 DCW [id number]) Special Tests Lumbar Spine Special Tests Vertical Spine Loading Test Results Negative Straight Leg Raise Test Results B hamstring tightness 50? Slump Test Results B hamstring tightness Manual Traction Test Results Mild improvement A-P Shearing Test Results Negative PT-OP-M Strength Start: 09/19/24 16:47 Freq: Status: Active Protocol: Document 09/19/24 11:30 DCW (Rec: 09/22/24 12:52 DCW [id number]) Hip Strength Hip Manual Muscle Testing Right Flexion (L2) 4+ Good+ Abduction 4+ Good+ Adduction 4+ Good+ External Rotation 5 Normal Internal Rotation 5 Normal Left Flexion (L2) 4+ Good+ Abduction 4+ Good+ Adduction 4+ Good+ External Rotation 5 Normal Internal Rotation 5 Normal Knee Strength Knee Manual Muscle Testing Right Flexion (S2) 4+ Good+ Extension (L3) 4+ Good+ Left Flexion (S2) 4- Good- Extension (L3) 4 Good Comments AFO on Left leg d/t footdrop PT-OP-Q Treatments Start: 09/19/24 16:47 Freq: Status: Active Protocol: Document 10/08/24 10:45 DCW (Rec: 10/08/24 11:30 DCW [id number]) Gym Equipment Shuttle Recovery Unilateral Squats Resistance 50# Shuttle Recovery Platform Stable Bilateral Squats Resistance 75# Shuttle Recovery Platform Stable Therapeutic Ball Bridging Exercise Details Bridging /c feet on ball Ball Size/Color Red - 55 cm LTR Exercise Details LTR Ball Size/Color Red - 55 cm Body Position Supine Reps/Duration 15 reps Therapeutic Exercises Supine Exercises Hamstring Stretch Supine Exercise Name Supine Hamstring stretch Side bilateral Standing Exercises Hamstring Curls Standing Exercise Name Hamstring Curls Side bilateral Resistance 10# Reps/Minutes 2x15 Hip Extension Standing Exercise Name Hip Extension Side bilateral Equipment Used Blue loop Other Exercises Step-ups Other Exercise Name Step-ups/downs Side bilateral Equipment Used 6 step Resisted Ambulation Other Exercise Name Resisted side-stepping Resistance Blue loop Equipment Used // bars PT-OP-T Assessment and Plan Start: 09/19/24 16:47 Freq: Status: Active Protocol: Document 10/08/24 10:45 DCW (Rec: 10/08/24 11:30 DCW [id number]) Physical Therapy Assessment Impairments Impairments Activity Tolerance,Functional Activities,Functional Mobility ,Gait,Strength Goals Two Impairment Pt unable to carry groceries into his home without increased pain Chemical Equipment Controller Goal (LTG) Pt to demonstrate ability to carry 20 pounds or more for 100' without increased pain in order to improve ability to independently go for groceries safely. LTG Duration 11/17/34 One Impairment Pt does not have an appropriate home exercise program Short Term Goal (STG) Pt to be independent and complaint with an appropriate HEP STG Duration 10/17/24 Assessment Summary Assessment Pt feeling much better about his function overall, feels like he has already been seeing some good progress. Continue to focus on leg and core strength, flexibility, and functional mobility. Physical Therapy Plan Frequency and Duration Frequency of Treatment 2x/Week Plan of Care Start Date 09/19/24 Plan of Care End Date 11/17/24 Therapeutic Interventions Therapeutic Interventions Gait Training,Home Exercise Program,Joint Mobilizations, Manual Therapy,Neuromuscular Re-education,Patient/Caregiver Education,Self-Care/Home Management,Soft Tissue Mobilization,Therapeutic Activities,Therapeutic Exercises Modalities Cold Pack/Ice Massage,Hot Packs Next Visit Focus/Plan Next Note Type Treatment Note Next Visit Plan Review HEP as needed. POC: Core/hip strengthening, body mechanics, lifting
--- NOTE | 2024-10-15 17:49 | PT.OTN ---
Current Diagnoses Lumbago with sciatica, unspecified side (10/15/24) Pain in leg, unspecified (10/15/24) Physical Therapy Treatment Note PT-OP-A Visit Information Start: 09/19/24 16:47 Freq: Status: Active Protocol: Document 10/15/24 17:00 DCW (Rec: 10/15/24 17:48 DCW [id number]) Out-Patient Physical Therapy Visit Information Visit Information Visit Type Treatment Note Visit Start Time 17:00 Visit Stop Time 17:45 Visit Number 6 Number of DRAFTER PLUMBING Visits 0 Evaluation Information Evaluation Date 09/19/24 PT-OP-B Current Condition Start: 09/19/24 16:47 Freq: Status: Active Protocol: Document 09/19/24 11:30 DCW (Rec: 09/22/24 14:20 DCW [id number]) Current Condition History of Current Condition Onset Date One year history Current Complaints Bilateral upper leg pain History of Current Condition Pt is an 78 year old male presenting with a one year history of upper leg/thigh pain bilaterally. Pt reports he feels fine sleeping or sitting, but when standing for a length of time, especially if he is carrying weight, like a grocery bag, it causes a fairly significant increase in pain. Pt reports he can work out at the gym without any pain. Pain goes into both legs , but does not go past the knees. Admits he is no longer able to go hiking, due to both the distance and the added weight causing pain. Does have a malcolm in his left femur following a fracture ~5 years ago. 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 Pt notes that when he has his leg pain, his leg, especially the left, feel weak and like they will give out, and has, in fact, experienced two falls over the past year. PT-OP-C Subjective Start: 09/19/24 16:47 Freq: Status: Active Protocol: Document 10/15/24 17:00 DCW (Rec: 10/15/24 17:48 DCW [id number]) OP-PT Subjective Patient Comments Patient Comments Pt reports he was doing a lot of work out gardening this past week, it was bothering his legs a bit, it's the same all the time, nothing different. Although I am discovering that some days I'm feeling better than other days. PT-OP-F Manual Assessment Start: 09/19/24 16:47 Freq: Status: Active Protocol: Document 09/19/24 11:30 DCW (Rec: 09/22/24 12:52 DCW [id number]) Manual Assessments Soft Tissue Assessment Soft Tissue Mobility Assessment Mild increased tone in bilateral musculature along lumbar spine, no notable tone or tenderness in upper legs. PT-OP-L Special Tests Start: 09/19/24 16:47 Freq: Status: Active Protocol: Document 09/19/24 11:30 DCW (Rec: 09/22/24 12:52 DCW [id number]) Special Tests Lumbar Spine Special Tests Vertical Spine Loading Test Results Negative Straight Leg Raise Test Results B hamstring tightness 50? Slump Test Results B hamstring tightness Manual Traction Test Results Mild improvement A-P Shearing Test Results Negative PT-OP-M Strength Start: 09/19/24 16:47 Freq: Status: Active Protocol: Document 09/19/24 11:30 DCW (Rec: 09/22/24 12:52 DCW [id number]) Hip Strength Hip Manual Muscle Testing Right Flexion (L2) 4+ Good+ Abduction 4+ Good+ Adduction 4+ Good+ External Rotation 5 Normal Internal Rotation 5 Normal Left Flexion (L2) 4+ Good+ Abduction 4+ Good+ Adduction 4+ Good+ External Rotation 5 Normal Internal Rotation 5 Normal Knee Strength Knee Manual Muscle Testing Right Flexion (S2) 4+ Good+ Extension (L3) 4+ Good+ Left Flexion (S2) 4- Good- Extension (L3) 4 Good Comments AFO on Left leg d/t footdrop PT-OP-Q Treatments Start: 09/19/24 16:47 Freq: Status: Active Protocol: Document 10/15/24 17:00 DCW (Rec: 10/15/24 17:48 DCW [id number]) Gym Equipment Shuttle Recovery Unilateral Squats Resistance 50# Shuttle Recovery Platform Stable Bilateral Squats Resistance 75# Shuttle Recovery Platform Stable Therapeutic Ball LTR Exercise Details LTR Ball Size/Color Red - 55 cm Body Position Supine Reps/Duration 15 reps Therapeutic Exercises Supine Exercises Single KtC Supine Exercise Name Single KtC Side bilateral Piriformis Supine Exercise Name Piriformis Stretch Side bilateral Hamstring Stretch Supine Exercise Name Supine Hamstring stretch Side bilateral Neuro Re-Education Treatment Balance Activities BOSU Lunge Details BOSU Lunge Surface Blue BOSU PT-OP-T Assessment and Plan Start: 09/19/24 16:47 Freq: Status: Active Protocol: Document 10/15/24 17:00 DCW (Rec: 10/15/24 17:48 DCW [id number]) Physical Therapy Assessment Impairments Impairments Activity Tolerance,Functional Activities,Functional Mobility ,Gait,Strength Goals Two Impairment Pt unable to carry groceries into his home without increased pain River Guide Goal (LTG) Pt to demonstrate ability to carry 20 pounds or more for 100' without increased pain in order to improve ability to independently go for groceries safely. LTG Duration 11/17/34 One Impairment Pt does not have an appropriate home exercise program Short Term Goal (STG) Pt to be independent and complaint with an appropriate HEP STG Duration 10/17/24 Assessment Summary Assessment Pt noting minimal overall change, but is still quite happy with his HEP and the overall knowledge he has gained. Does admit he just wishes he could see progress faster. Physical Therapy Plan Frequency and Duration Frequency of Treatment 2x/Week Plan of Care Start Date 09/19/24 Plan of Care End Date 11/17/24 Therapeutic Interventions Therapeutic Interventions Gait Training,Home Exercise Program,Joint Mobilizations, Manual Therapy,Neuromuscular Re-education,Patient/Caregiver Education,Self-Care/Home Management,Soft Tissue Mobilization,Therapeutic Activities,Therapeutic Exercises Modalities Cold Pack/Ice Massage,Hot Packs Next Visit Focus/Plan Next Note Type Treatment Note Next Visit Plan Review HEP as needed. POC: Core/hip strengthening, body mechanics, lifting
--- NOTE | 2024-10-17 09:43 | PT.OTN ---
Current Diagnoses Lumbago with sciatica, unspecified side (10/17/24) Pain in leg, unspecified (10/17/24) Physical Therapy Treatment Note PT-OP-A Visit Information Start: 09/19/24 16:47 Freq: Status: Active Protocol: Document 10/17/24 09:00 DCW (Rec: 10/17/24 09:42 DCW [id number]) Out-Patient Physical Therapy Visit Information Visit Information Visit Type Treatment Note Visit Start Time 09:00 Visit Stop Time 09:45 Visit Number 7 Number of AUTOMOTIVE DISMANTLER Visits 0 Evaluation Information Evaluation Date 09/19/24 PT-OP-B Current Condition Start: 09/19/24 16:47 Freq: Status: Active Protocol: Document 09/19/24 11:30 DCW (Rec: 09/22/24 14:20 DCW [id number]) Current Condition History of Current Condition Onset Date One year history Current Complaints Bilateral upper leg pain History of Current Condition Pt is an 78 year old male presenting with a one year history of upper leg/thigh pain bilaterally. Pt reports he feels fine sleeping or sitting, but when standing for a length of time, especially if he is carrying weight, like a grocery bag, it causes a fairly significant increase in pain. Pt reports he can work out at the gym without any pain. Pain goes into both legs , but does not go past the knees. Admits he is no longer able to go hiking, due to both the distance and the added weight causing pain. Does have a malcolm in his left femur following a fracture ~5 years ago. 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 Pt notes that when he has his leg pain, his leg, especially the left, feel weak and like they will give out, and has, in fact, experienced two falls over the past year. PT-OP-C Subjective Start: 09/19/24 16:47 Freq: Status: Active Protocol: Document 10/17/24 09:00 DCW (Rec: 10/17/24 09:42 DCW [id number]) OP-PT Subjective Patient Comments Patient Comments Pt went grocery shopping yesterday, notes he felt pretty good while out. PT-OP-F Manual Assessment Start: 09/19/24 16:47 Freq: Status: Active Protocol: Document 09/19/24 11:30 DCW (Rec: 09/22/24 12:52 DCW [id number]) Manual Assessments Soft Tissue Assessment Soft Tissue Mobility Assessment Mild increased tone in bilateral musculature along lumbar spine, no notable tone or tenderness in upper legs. PT-OP-L Special Tests Start: 09/19/24 16:47 Freq: Status: Active Protocol: Document 09/19/24 11:30 DCW (Rec: 09/22/24 12:52 DCW [id number]) Special Tests Lumbar Spine Special Tests Vertical Spine Loading Test Results Negative Straight Leg Raise Test Results B hamstring tightness 50? Slump Test Results B hamstring tightness Manual Traction Test Results Mild improvement A-P Shearing Test Results Negative PT-OP-M Strength Start: 09/19/24 16:47 Freq: Status: Active Protocol: Document 09/19/24 11:30 DCW (Rec: 09/22/24 12:52 DCW [id number]) Hip Strength Hip Manual Muscle Testing Right Flexion (L2) 4+ Good+ Abduction 4+ Good+ Adduction 4+ Good+ External Rotation 5 Normal Internal Rotation 5 Normal Left Flexion (L2) 4+ Good+ Abduction 4+ Good+ Adduction 4+ Good+ External Rotation 5 Normal Internal Rotation 5 Normal Knee Strength Knee Manual Muscle Testing Right Flexion (S2) 4+ Good+ Extension (L3) 4+ Good+ Left Flexion (S2) 4- Good- Extension (L3) 4 Good Comments AFO on Left leg d/t footdrop PT-OP-Q Treatments Start: 09/19/24 16:47 Freq: Status: Active Protocol: Document 10/17/24 09:00 DCW (Rec: 10/17/24 09:42 DCW [id number]) Gym Equipment Shuttle Recovery Unilateral Squats Resistance 50# Shuttle Recovery Platform Stable Bilateral Squats Resistance 87# Shuttle Recovery Platform Stable Therapeutic Ball Resisted hip flexion Exercise Details Resisted hip/knee flexion Ball Size/Color Red - 55 cm Lv 3 t-band LTR Exercise Details LTR Ball Size/Color Red - 55 cm Body Position Supine Reps/Duration 15 reps Therapeutic Exercises Supine Exercises Single KtC Supine Exercise Name Single KtC Side bilateral Piriformis Supine Exercise Name Piriformis Stretch Side bilateral Hamstring Stretch Supine Exercise Name Supine Hamstring stretch Side bilateral Other Exercises Sliders Other Exercise Name Sliders Side bilateral Equipment Used Furniture sliders Comments Abduction/. Step-ups Other Exercise Name Step-ups/downs Side bilateral Equipment Used 6 step Resisted Ambulation Other Exercise Name Resisted side-stepping Resistance Blue loop Equipment Used // bars PT-OP-T Assessment and Plan Start: 09/19/24 16:47 Freq: Status: Active Protocol: Document 10/17/24 09:00 DCW (Rec: 10/17/24 09:42 DCW [id number]) Physical Therapy Assessment Impairments Impairments Activity Tolerance,Functional Activities,Functional Mobility ,Gait,Strength Goals Two Impairment Pt unable to carry groceries into his home without increased pain Superintendent Stations Goal (LTG) Pt to demonstrate ability to carry 20 pounds or more for 100' without increased pain in order to improve ability to independently go for groceries safely. LTG Duration 11/17/34 One Impairment Pt does not have an appropriate home exercise program Short Term Goal (STG) Pt to be independent and complaint with an appropriate HEP STG Duration 10/17/24 Assessment Summary Assessment Good response to treatment today, pt feeling like he is seeing some progress in his ability to perform home activities with less LE pain. Physical Therapy Plan Frequency and Duration Frequency of Treatment 2x/Week Plan of Care Start Date 09/19/24 Plan of Care End Date 11/17/24 Therapeutic Interventions Therapeutic Interventions Gait Training,Home Exercise Program,Joint Mobilizations, Manual Therapy,Neuromuscular Re-education,Patient/Caregiver Education,Self-Care/Home Management,Soft Tissue Mobilization,Therapeutic Activities,Therapeutic Exercises Modalities Cold Pack/Ice Massage,Hot Packs Next Visit Focus/Plan Next Note Type Treatment Note Next Visit Plan Review HEP as needed. POC: Core/hip strengthening, body mechanics, lifting
--- NOTE | 2024-10-21 11:30 | PT.OTN ---
Current Diagnoses Lumbago with sciatica, unspecified side (10/21/24) Pain in leg, unspecified (10/21/24) Physical Therapy Treatment Note PT-OP-A Visit Information Start: 09/19/24 16:47 Freq: Status: Active Protocol: Document 10/21/24 10:45 SP (Rec: 10/21/24 11:35 SP [id number]) Out-Patient Physical Therapy Visit Information Visit Information Visit Type Treatment Note Visit Start Time 10:45 Visit Stop Time 11:30 Visit Number 8 (8/10 with eval) Number of MEASUREMENT DEPARTMENT CHIEF CLERK Visits 1 Evaluation Information Evaluation Date 09/19/24 PT-OP-B Current Condition Start: 09/19/24 16:47 Freq: Status: Active Protocol: Document 09/19/24 11:30 DCW (Rec: 09/22/24 14:20 DCW [id number]) Current Condition History of Current Condition Onset Date One year history Current Complaints Bilateral upper leg pain History of Current Condition Pt is an 78 year old male presenting with a one year history of upper leg/thigh pain bilaterally. Pt reports he feels fine sleeping or sitting, but when standing for a length of time, especially if he is carrying weight, like a grocery bag, it causes a fairly significant increase in pain. Pt reports he can work out at the gym without any pain. Pain goes into both legs , but does not go past the knees. Admits he is no longer able to go hiking, due to both the distance and the added weight causing pain. Does have a malcolm in his left femur following a fracture ~5 years ago. 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 Pt notes that when he has his leg pain, his leg, especially the left, feel weak and like they will give out, and has, in fact, experienced two falls over the past year. PT-OP-C Subjective Start: 09/19/24 16:47 Freq: Status: Active Protocol: Document 10/21/24 10:45 SP (Rec: 10/21/24 11:35 SP [id number]) OP-PT Subjective Patient Comments Patient Comments Pt reports mid back sore, helped friend move items from house to truck and think over used mid back. PT-OP-F Manual Assessment Start: 09/19/24 16:47 Freq: Status: Active Protocol: Document 09/19/24 11:30 DCW (Rec: 09/22/24 12:52 DCW [id number]) Manual Assessments Soft Tissue Assessment Soft Tissue Mobility Assessment Mild increased tone in bilateral musculature along lumbar spine, no notable tone or tenderness in upper legs. PT-OP-L Special Tests Start: 09/19/24 16:47 Freq: Status: Active Protocol: Document 09/19/24 11:30 DCW (Rec: 09/22/24 12:52 DCW [id number]) Special Tests Lumbar Spine Special Tests Vertical Spine Loading Test Results Negative Straight Leg Raise Test Results B hamstring tightness 50? Slump Test Results B hamstring tightness Manual Traction Test Results Mild improvement A-P Shearing Test Results Negative PT-OP-M Strength Start: 09/19/24 16:47 Freq: Status: Active Protocol: Document 09/19/24 11:30 DCW (Rec: 09/22/24 12:52 DCW [id number]) Hip Strength Hip Manual Muscle Testing Right Flexion (L2) 4+ Good+ Abduction 4+ Good+ Adduction 4+ Good+ External Rotation 5 Normal Internal Rotation 5 Normal Left Flexion (L2) 4+ Good+ Abduction 4+ Good+ Adduction 4+ Good+ External Rotation 5 Normal Internal Rotation 5 Normal Knee Strength Knee Manual Muscle Testing Right Flexion (S2) 4+ Good+ Extension (L3) 4+ Good+ Left Flexion (S2) 4- Good- Extension (L3) 4 Good Comments AFO on Left leg d/t footdrop PT-OP-Q Treatments Start: 09/19/24 16:47 Freq: Status: Active Protocol: Document 10/21/24 10:45 SP (Rec: 10/21/24 11:35 SP [id number]) Gym Equipment Shuttle Recovery Unilateral Squats Details cued keep heel down Resistance 50# 2 navy bands Shuttle Recovery Platform Stable Reps/Time x20 Bilateral Squats Details cued knee alignment little wider with feet, keep heels down Resistance 87# 3 navy bands Shuttle Recovery Platform Stable Reps/Time x20 Therapeutic Ball Resisted hip flexion Exercise Details Resisted hip/knee flexion Ball Size/Color Red - 55 cm Lv 3 t-band Reps/Duration 2x10 reps Comments therapist anchored LTR Exercise Details LTR Ball Size/Color Red - 55 cm 3/4 added TB #3 [place] green Body Position Supine Reps/Duration 2x10 reps Comments therapist anchored Therapeutic Exercises Supine Exercises Single KtC Supine Exercise Name Single KtC Side bilateral Reps/Minutes 30 SH each LE Comments after tball core Piriformis Supine Exercise Name Piriformis Stretch Side bilateral Equipment Used ankle over opp bent knee, cradle knee to opp shld Reps/Minutes 30 SH each LE Comments after tball core Hamstring Stretch Supine Exercise Name Supine Hamstring stretch Side bilateral Equipment Used grasp behind thigh, lift lower leg vs strap on foot Reps/Minutes 30 SH each LE Comments after tball core, better stretch strap on foot 10/21/24 Sidelying Exercises open book Sidelying Exercise Name reviewed Side bilateral Reps/Minutes 5 eps ,1 rep end feel pec stretch 3 breath hold Comments am warm up in am, TS mobility Neuro Re-Education Treatment Balance Activities uneven surface Details assimulate to uneven trails/ yard wants to return to Surface 2 mats over pods/foam stones Comments CGA, cues for midline and TA engagement for balance. PT-OP-T Assessment and Plan Start: 09/19/24 16:47 Freq: Status: Active Protocol: Document 10/21/24 10:45 SP (Rec: 10/21/24 11:35 SP [id number]) Physical Therapy Assessment Goals Two Impairment Pt unable to carry groceries into his home without increased pain Alf Goal (LTG) Pt to demonstrate ability to carry 20 pounds or more for 100' without increased pain in order to improve ability to independently go for groceries safely. LTG Duration 11/17/34 One Impairment Pt does not have an appropriate home exercise program Short Term Goal (STG) Pt to be independent and complaint with an appropriate HEP STG Duration 10/17/24 Assessment Summary Assessment Pt good response to resisted ther ex today, progressed resisted LTR for progression in core strengthening. Incorporated LE stretching to increased flexibility and instructed to perform before get out of bed to allow less leg and back tightness and discomfort when gets out of bed, can help feel more stable as well. Good feedback response after stretching and moving around, will incorporated in am. Initiated uneven surface walking today for awareness can help him feel more confident community gait on slight uneven trails like left on [address] trail. Education can bring trek poles for safety if needed stability while allow progression in balance activities. Physical Therapy Plan Frequency and Duration Frequency of Treatment 2x/Week Plan of Care Start Date 09/19/24 Plan of Care End Date 11/17/24 Therapeutic Interventions Therapeutic Interventions Gait Training,Home Exercise Program,Joint Mobilizations, Manual Therapy,Neuromuscular Re-education,Patient/Caregiver Education,Self-Care/Home Management,Soft Tissue Mobilization,Therapeutic Activities,Therapeutic Exercises Modalities Cold Pack/Ice Massage,Hot Packs Next Visit Focus/Plan Next Note Type Treatment Note Next Visit Plan Review HEP as needed. Next tx incorporated body mechanics lifting items with TA for back health, continue LE strength SL and incorporate leg wts, uneven surfaces per pt request return to simple trail navigation in community. POC: Core/hip strengthening, body mechanics, lifting
--- NOTE | 2024-10-23 11:32 | PT.OTN ---
Current Diagnoses Lumbago with sciatica, unspecified side (10/23/24) Pain in leg, unspecified (10/23/24) Physical Therapy Treatment Note PT-OP-A Visit Information Start: 09/19/24 16:47 Freq: Status: Active Protocol: Document 10/23/24 10:50 SP (Rec: 10/23/24 11:35 SP [id number]) Out-Patient Physical Therapy Visit Information Visit Information Visit Type Treatment Note Visit Start Time 10:50 Visit Stop Time 11:32 Visit Number 9 (04/29 with eval) Number of PRODUCTION SHIFT SUPERVISOR Visits 2 Evaluation Information Evaluation Date 09/19/24 PT-OP-B Current Condition Start: 09/19/24 16:47 Freq: Status: Active Protocol: Document 09/19/24 11:30 DCW (Rec: 09/22/24 14:20 DCW [id number]) Current Condition History of Current Condition Onset Date One year history Current Complaints Bilateral upper leg pain History of Current Condition Pt is an 78 year old male presenting with a one year history of upper leg/thigh pain bilaterally. Pt reports he feels fine sleeping or sitting, but when standing for a length of time, especially if he is carrying weight, like a grocery bag, it causes a fairly significant increase in pain. Pt reports he can work out at the gym without any pain. Pain goes into both legs , but does not go past the knees. Admits he is no longer able to go hiking, due to both the distance and the added weight causing pain. Does have a malcolm in his left femur following a fracture ~5 years ago. 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 Pt notes that when he has his leg pain, his leg, especially the left, feel weak and like they will give out, and has, in fact, experienced two falls over the past year. PT-OP-C Subjective Start: 09/19/24 16:47 Freq: Status: Active Protocol: Document 10/23/24 10:50 SP (Rec: 10/23/24 11:35 SP [id number]) OP-PT Subjective Patient Comments Patient Comments Pt reports suprised and seeing improvement when incorporate his exercises even 10 min 2-3 x day. Thinks moving in right direction. PT-OP-F Manual Assessment Start: 09/19/24 16:47 Freq: Status: Active Protocol: Document 09/19/24 11:30 DCW (Rec: 09/22/24 12:52 DCW [id number]) Manual Assessments Soft Tissue Assessment Soft Tissue Mobility Assessment Mild increased tone in bilateral musculature along lumbar spine, no notable tone or tenderness in upper legs. PT-OP-L Special Tests Start: 09/19/24 16:47 Freq: Status: Active Protocol: Document 09/19/24 11:30 DCW (Rec: 09/22/24 12:52 DCW [id number]) Special Tests Lumbar Spine Special Tests Vertical Spine Loading Test Results Negative Straight Leg Raise Test Results B hamstring tightness 50? Slump Test Results B hamstring tightness Manual Traction Test Results Mild improvement A-P Shearing Test Results Negative PT-OP-M Strength Start: 09/19/24 16:47 Freq: Status: Active Protocol: Document 09/19/24 11:30 DCW (Rec: 09/22/24 12:52 DCW [id number]) Hip Strength Hip Manual Muscle Testing Right Flexion (L2) 4+ Good+ Abduction 4+ Good+ Adduction 4+ Good+ External Rotation 5 Normal Internal Rotation 5 Normal Left Flexion (L2) 4+ Good+ Abduction 4+ Good+ Adduction 4+ Good+ External Rotation 5 Normal Internal Rotation 5 Normal Knee Strength Knee Manual Muscle Testing Right Flexion (S2) 4+ Good+ Extension (L3) 4+ Good+ Left Flexion (S2) 4- Good- Extension (L3) 4 Good Comments AFO on Left leg d/t footdrop PT-OP-Q Treatments Start: 09/19/24 16:47 Freq: Status: Active Protocol: Document 10/23/24 10:50 SP (Rec: 10/23/24 11:35 SP [id number]) Gym Equipment Shuttle Recovery Unilateral Squats Details occ cue keep heel down Resistance 50>62# (2 navy bands) Shuttle Recovery Platform Stable Reps/Time x15 each LE Bilateral Squats Details cued knee alignment little wider with feet, keep heels down Resistance 87# 3 navy bands (100 next tx) Shuttle Recovery Platform Stable Reps/Time x20 Therapeutic Exercises Sitting Exercises LAQ Sitting Exercise Name trailed in PT Side bilateral Resistance 5# leg wt Reps/Minutes 20 alternating Comments good muscle tiring Standing Exercises calf raises Standing Exercise Name trialed in PT Side bilateral Resistance 5# leg wt Equipment Used rail support Reps/Minutes 20 reps Comments good tiring in calves Hip Abduction Standing Exercise Name Hip Abduction Side bilateral Resistance 5# leg wt Equipment Used rail support Reps/Minutes 20 alternating Comments good tiring in legs, cued not kick high just feel hip abd engagement Hamstring Curls Standing Exercise Name Hamstring Curls Side bilateral Resistance 10# Reps/Minutes 2x 20 reps alternating Comments rail support Hip Extension Standing Exercise Name Hip Extension Side bilateral Resistance 5 # leg wt Equipment Used rail support Reps/Minutes 20 reps alternating Comments good tiring in legs, cued not kick high just feel glut engagement Neuro Re-Education Treatment Balance Activities uneven surface Details assimulate to uneven trails/ yard wants to return to Surface 2 mats over pods/foam stones, 8 step end mat (big rock), 6 hurdles Comments fwd / lateralCGA, cues for midline and TA engagement for balance. PT-OP-T Assessment and Plan Start: 09/19/24 16:47 Freq: Status: Active Protocol: Document 10/23/24 10:50 SP (Rec: 10/23/24 11:35 SP [id number]) Physical Therapy Assessment Goals Two Impairment Pt unable to carry groceries into his home without increased pain Mcc Goal (LTG) Pt to demonstrate ability to carry 20 pounds or more for 100' without increased pain in order to improve ability to independently go for groceries safely. LTG Duration 11/17/34 One Impairment Pt does not have an appropriate home exercise program Short Term Goal (STG) Pt to be independent and complaint with an appropriate HEP STG Duration 10/17/24 Assessment Summary Assessment Progressed pt with LE strengthening today with resisted exercises has done in past, reports good muscle tiring. Education for performance to support balance for return to uneven surface comminty hikes. Provided screen shot for purchase adjustable wt leg wts and [facility] to continue on own if wish to do perform in group setting. Continued uneven surface gait for progression return to hiking trails, cGA for safety, cues for TA and rhomboid engagement with softer receiprocal stepping safe stability. Physical Therapy Plan Frequency and Duration Frequency of Treatment 2x/Week Plan of Care Start Date 09/19/24 Plan of Care End Date 11/17/24 Therapeutic Interventions Therapeutic Interventions Gait Training,Home Exercise Program,Joint Mobilizations, Manual Therapy,Neuromuscular Re-education,Patient/Caregiver Education,Self-Care/Home Management,Soft Tissue Mobilization,Therapeutic Activities,Therapeutic Exercises Modalities Cold Pack/Ice Massage,Hot Packs Next Visit Focus/Plan Next Note Type Treatment Note Next Visit Plan Review HEP as needed. Next tx incorporated body mechanics lifting items with TA for back health, continue LE strength SL and continue incorporate leg wts, shuttle balance and uneven surfaces per pt request return to simple trail navigation in community. POC: Core/hip strengthening, body mechanics, lifting
--- NOTE | 2024-10-28 12:16 | PT.OTN ---
Current Diagnoses Lumbago with sciatica, unspecified side (10/28/24) Pain in leg, unspecified (10/28/24) Physical Therapy Treatment Note PT-OP-A Visit Information Start: 09/19/24 16:47 Freq: Status: Active Protocol: Document 10/28/24 11:30 DCW (Rec: 10/28/24 12:16 DCW [id number]) Out-Patient Physical Therapy Visit Information Visit Information Visit Type Progress Note Visit Start Time 11:30 Visit Stop Time 12:15 Visit Number 10 Number of [facility] Visits 0 Evaluation Information Evaluation Date 09/19/24 PT-OP-B Current Condition Start: 09/19/24 16:47 Freq: Status: Active Protocol: Document 09/19/24 11:30 DCW (Rec: 09/22/24 14:20 DCW [id number]) Current Condition History of Current Condition Onset Date One year history Current Complaints Bilateral upper leg pain History of Current Condition Pt is an 78 year old male presenting with a one year history of upper leg/thigh pain bilaterally. Pt reports he feels fine sleeping or sitting, but when standing for a length of time, especially if he is carrying weight, like a grocery bag, it causes a fairly significant increase in pain. Pt reports he can work out at the gym without any pain. Pain goes into both legs , but does not go past the knees. Admits he is no longer able to go hiking, due to both the distance and the added weight causing pain. Does have a malcolm in his left femur following a fracture ~5 years ago. 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 Pt notes that when he has his leg pain, his leg, especially the left, feel weak and like they will give out, and has, in fact, experienced two falls over the past year. PT-OP-C Subjective Start: 09/19/24 16:47 Freq: Status: Active Protocol: Document 10/28/24 11:30 DCW (Rec: 10/28/24 12:16 DCW [id number]) OP-PT Subjective Patient Comments Patient Comments If I don't keep up with doing exercises every day, I seem to notice more soreness. If I do them every day, I feel good . PT-OP-F Manual Assessment Start: 09/19/24 16:47 Freq: Status: Active Protocol: Document 09/19/24 11:30 DCW (Rec: 09/22/24 12:52 DCW [id number]) Manual Assessments Soft Tissue Assessment Soft Tissue Mobility Assessment Mild increased tone in bilateral musculature along lumbar spine, no notable tone or tenderness in upper legs. PT-OP-L Special Tests Start: 09/19/24 16:47 Freq: Status: Active Protocol: Document 09/19/24 11:30 DCW (Rec: 09/22/24 12:52 DCW [id number]) Special Tests Lumbar Spine Special Tests Vertical Spine Loading Test Results Negative Straight Leg Raise Test Results B hamstring tightness 50? Slump Test Results B hamstring tightness Manual Traction Test Results Mild improvement A-P Shearing Test Results Negative PT-OP-M Strength Start: 09/19/24 16:47 Freq: Status: Active Protocol: Document 09/19/24 11:30 DCW (Rec: 09/22/24 12:52 DCW [id number]) Hip Strength Hip Manual Muscle Testing Right Flexion (L2) 4+ Good+ Abduction 4+ Good+ Adduction 4+ Good+ External Rotation 5 Normal Internal Rotation 5 Normal Left Flexion (L2) 4+ Good+ Abduction 4+ Good+ Adduction 4+ Good+ External Rotation 5 Normal Internal Rotation 5 Normal Knee Strength Knee Manual Muscle Testing Right Flexion (S2) 4+ Good+ Extension (L3) 4+ Good+ Left Flexion (S2) 4- Good- Extension (L3) 4 Good Comments AFO on Left leg d/t footdrop PT-OP-Q Treatments Start: 09/19/24 16:47 Freq: Status: Active Protocol: Document 10/28/24 11:30 DCW (Rec: 10/28/24 12:16 DCW [id number]) Gym Equipment Shuttle Recovery Unilateral Squats Resistance 62# (2 navy) Shuttle Recovery Platform Stable Reps/Time x15 each LE Bilateral Squats Resistance 100# (4 navy) Shuttle Recovery Platform Stable Reps/Time x20 Shuttle Balance RED Details WBOS, Staggered Therapeutic Ball Resisted hip flexion Exercise Details Resisted hip/knee flexion Ball Size/Color Red - 55 cm Lv 3 t-band Reps/Duration 2x10 reps Comments therapist anchored LTR Exercise Details LTR Ball Size/Color Red - 55 cm Body Position Supine Reps/Duration 2x10 reps Therapeutic Exercises Supine Exercises Single KtC Supine Exercise Name Single KtC Side bilateral Reps/Minutes 30 SH each LE Comments after tball core Piriformis Supine Exercise Name Piriformis Stretch Side bilateral Equipment Used ankle over opp bent knee, cradle knee to opp shld Reps/Minutes 30 SH each LE Comments after tball core Hamstring Stretch Supine Exercise Name Supine Hamstring stretch Side bilateral Equipment Used grasp behind thigh, lift lower leg vs strap on foot Reps/Minutes 30 SH each LE Comments after tball core, better stretch strap on foot 10/21/24 Sitting Exercises LAQ Side bilateral Resistance 5# leg wt Reps/Minutes 20 alternating Comments good muscle tiring Other Exercises Step-ups Other Exercise Name Step-ups/downs Side bilateral Equipment Used 6 step PT-OP-T Assessment and Plan Start: 09/19/24 16:47 Freq: Status: Active Protocol: Document 10/28/24 11:30 DCW (Rec: 10/28/24 12:16 DCW [id number]) Physical Therapy Assessment Impairments Impairments Activity Tolerance,Functional Activities,Functional Mobility ,Gait,Strength Goals Two Impairment Pt unable to carry groceries into his home without increased pain Car Starter Goal (LTG) Pt to demonstrate ability to carry 20 pounds or more for 100' without increased pain in order to improve ability to independently go for groceries safely. LTG Duration 11/17/34 One Impairment Pt does not have an appropriate home exercise program Short Term Goal (STG) Pt to be independent and complaint with an appropriate HEP STG Duration 10/17/24 Assessment Summary Assessment Pt feeling good with overall improvement, although notes it has been eye-opening that he has to be so consistent with exercise to maintain results. Pt feels like he has a good understanding of HEP, is approaching meeting all goals, and feels discharge following last scheduled visit is appropriate. Therapist in agreement. Will reassess next visit and discharge. Physical Therapy Plan Frequency and Duration Frequency of Treatment 2x/Week Plan of Care Start Date 09/19/24 Plan of Care End Date 11/17/24 Therapeutic Interventions Therapeutic Interventions Gait Training,Home Exercise Program,Joint Mobilizations, Manual Therapy,Neuromuscular Re-education,Patient/Caregiver Education,Self-Care/Home Management,Soft Tissue Mobilization,Therapeutic Activities,Therapeutic Exercises Modalities Cold Pack/Ice Massage,Hot Packs Next Visit Focus/Plan Next Note Type Treatment Note Next Visit Plan Review HEP as needed. Next tx incorporated body mechanics lifting items with TA for back health, continue LE strength SL and continue incorporate leg wts, shuttle balance and uneven surfaces per pt request return to simple trail navigation in community. POC: Core/hip strengthening, body mechanics, lifting
--- NOTE | 2024-10-30 12:20 | PT.OTN ---
Current Diagnoses Lumbago with sciatica, unspecified side (10/30/24) Pain in leg, unspecified (10/30/24) Physical Therapy Treatment Note PT-OP-A Visit Information Start: 09/19/24 16:47 Freq: Status: Active Protocol: Document 10/30/24 11:30 DCW (Rec: 10/30/24 12:19 DCW [id number]) Out-Patient Physical Therapy Visit Information Visit Information Visit Type Discharge Summary Visit Start Time 11:30 Visit Stop Time 12:00 Visit Number 11 Number of HEEL SEAM RUBBER Visits 0 Evaluation Information Evaluation Date 09/19/24 PT-OP-B Current Condition Start: 09/19/24 16:47 Freq: Status: Active Protocol: Document 09/19/24 11:30 DCW (Rec: 09/22/24 14:20 DCW [id number]) Current Condition History of Current Condition Onset Date One year history Current Complaints Bilateral upper leg pain History of Current Condition Pt is an 78 year old male presenting with a one year history of upper leg/thigh pain bilaterally. Pt reports he feels fine sleeping or sitting, but when standing for a length of time, especially if he is carrying weight, like a grocery bag, it causes a fairly significant increase in pain. Pt reports he can work out at the gym without any pain. Pain goes into both legs , but does not go past the knees. Admits he is no longer able to go hiking, due to both the distance and the added weight causing pain. Does have a malcolm in his left femur following a fracture ~5 years ago. 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 Pt notes that when he has his leg pain, his leg, especially the left, feel weak and like they will give out, and has, in fact, experienced two falls over the past year. PT-OP-C Subjective Start: 09/19/24 16:47 Freq: Status: Active Protocol: Document 10/30/24 11:30 DCW (Rec: 10/30/24 12:19 DCW [id number]) OP-PT Subjective Patient Comments Patient Comments Things are going pretty well, I'm encouraged. PT-OP-F Manual Assessment Start: 09/19/24 16:47 Freq: Status: Active Protocol: Document 10/30/24 11:30 DCW (Rec: 10/30/24 11:40 DCW [id number]) Manual Assessments Soft Tissue Assessment Soft Tissue Mobility Assessment Mild increased tone in bilateral musculature along lumbar spine, no notable tone or tenderness in upper legs. PT-OP-L Special Tests Start: 09/19/24 16:47 Freq: Status: Active Protocol: Document 10/30/24 11:30 DCW (Rec: 10/30/24 11:40 DCW [id number]) Special Tests Lumbar Spine Special Tests Vertical Spine Loading Test Results Negative Straight Leg Raise Test Results B hamstring tightness L: 63?, R: 68? Slump Test Results B hamstring tightness A-P Shearing Test Results Negative PT-OP-M Strength Start: 09/19/24 16:47 Freq: Status: Active Protocol: Document 10/30/24 11:30 DCW (Rec: 10/30/24 11:40 DCW [id number]) Hip Strength Hip Manual Muscle Testing Right Flexion (L2) 5 Normal Abduction 5 Normal Adduction 5 Normal External Rotation 5 Normal Internal Rotation 5 Normal Left Flexion (L2) 5 Normal Abduction 5 Normal Adduction 5 Normal External Rotation 5 Normal Internal Rotation 5 Normal Knee Strength Knee Manual Muscle Testing Right Flexion (S2) 4+ Good+ Extension (L3) 5 Normal Left Flexion (S2) 4+ Good+ Extension (L3) 5 Normal Comments AFO on Left leg d/t footdrop PT-OP-Q Treatments Start: 09/19/24 16:47 Freq: Status: Active Protocol: Document 10/28/24 11:30 DCW (Rec: 10/28/24 12:16 DCW [id number]) Gym Equipment Shuttle Recovery Unilateral Squats Resistance 62# (2 navy) Shuttle Recovery Platform Stable Reps/Time x15 each LE Bilateral Squats Resistance 100# (4 navy) Shuttle Recovery Platform Stable Reps/Time x20 Shuttle Balance RED Details WBOS, Staggered Therapeutic Ball Resisted hip flexion Exercise Details Resisted hip/knee flexion Ball Size/Color Red - 55 cm Lv 3 t-band Reps/Duration 2x10 reps Comments therapist anchored LTR Exercise Details LTR Ball Size/Color Red - 55 cm Body Position Supine Reps/Duration 2x10 reps Therapeutic Exercises Supine Exercises Single KtC Supine Exercise Name Single KtC Side bilateral Reps/Minutes 30 SH each LE Comments after tball core Piriformis Supine Exercise Name Piriformis Stretch Side bilateral Equipment Used ankle over opp bent knee, cradle knee to opp shld Reps/Minutes 30 SH each LE Comments after tball core Hamstring Stretch Supine Exercise Name Supine Hamstring stretch Side bilateral Equipment Used grasp behind thigh, lift lower leg vs strap on foot Reps/Minutes 30 SH each LE Comments after tball core, better stretch strap on foot 10/21/24 Sitting Exercises LAQ Side bilateral Resistance 5# leg wt Reps/Minutes 20 alternating Comments good muscle tiring Other Exercises Step-ups Other Exercise Name Step-ups/downs Side bilateral Equipment Used 6 step PT-OP-T Assessment and Plan Start: 09/19/24 16:47 Freq: Status: Active Protocol: Document 10/30/24 11:30 DCW (Rec: 10/30/24 12:19 DCW [id number]) Physical Therapy Assessment Impairments Impairments Activity Tolerance,Functional Activities,Functional Mobility ,Gait,Strength Goals Two Impairment Pt unable to carry groceries into his home without increased pain Camper Assembler Goal (LTG) Pt to demonstrate ability to carry 20 pounds or more for 100' without increased pain in order to improve ability to independently go for groceries safely. LTG Duration 11/17/34 - Improving (mild HS discomfort) One Impairment Pt does not have an appropriate home exercise program Short Term Goal (STG) Pt to be independent and complaint with an appropriate HEP STG Duration 10/17/24 - Improving Assessment Summary Assessment Pt doing much better overall, frequency and severity of symptoms has improved greatly. Pt feeling like his leg strength is better, although admits he struggles with motivation for HEP. Plans to start a routine of performing earlier in the AM when first getting up. Pt feels comfortable with discharge at this time, understands that he can return to PT in the future if needed with a new referral. Physical Therapy Plan Frequency and Duration Frequency of Treatment 2x/Week Plan of Care Start Date 09/19/24 Plan of Care End Date 11/17/24 Therapeutic Interventions Therapeutic Interventions Gait Training,Home Exercise Program,Joint Mobilizations, Manual Therapy,Neuromuscular Re-education,Patient/Caregiver Education,Self-Care/Home Management,Soft Tissue Mobilization,Therapeutic Activities,Therapeutic Exercises Modalities Cold Pack/Ice Massage,Hot Packs Next Visit Focus/Plan Next Note Type Discharge Summary
== END 2024-11-05 15:47 | disposition home or self-care (01) ==
LOC: PHYS 11:30
PROVIDERS: Family Provider Family Medicine; PCP Family Medicine; Referring Provider Family Medicine; Visit Provider Family Medicine
DX: M79.606 Pain in leg, unspecified (principal); M54.40 Lumbago with sciatica, unspecified side
CPT/HCPCS: 97110; 97112; 97140; 97163; 97535